=== PATIENT | male | born 1955 | race Caucasian/White ===

== ENCOUNTER 2020-04-10 00:45 | Observation (INO) | payer OTHER, SELFPAY ==
[2020-04-10] VITALS (12 sets, daily range): BP systolic 153–183; BP diastolic 68–100; PULSE 49–63; RESP 14–22; TEMP 35.8–36.9; O2SAT 87–98; BMI 40.1; BMI 41.0
--- NOTE | 2020-04-10 00:57 | EKG12_ITS ---
Test Reason : CP Blood Pressure : / mmHG Vent. Rate : 049 BPM Atrial Rate : 049 BPM P-R Int : 186 ms QRS Dur : 100 ms QT Int : 468 ms P-R-T Axes : 012 013 057 degrees QTc Int : 422 ms Sinus bradycardia Nonspecific T wave abnormality Abnormal ECG Confirmed by BLADE STARR, SHO ([id number]), mapping editor CHING ANGULO ([id number]) on 04/12/2020 1:04:43 PM Referred By: DARCY Confirmed By:SHO MURGUIA MD
--- NOTE | 2020-04-10 00:57 | RAD_ITS ---
STUDY: X-RAY CHEST REASON FOR EXAM: Male, 64 years old. CHEST PAIN X 45 MIN. 1 STENT IN 2016. TECHNIQUE: Single AP portable view of the chest. COMPARISON: None. FINDINGS: Lungs underexpanded interstitial markings are mildly prominent there is peribronchial thickening. There is no demonstrated pleural abnormality. The heart is partially obscured by the hemidiaphragms. There is mild to moderate cardiac enlargement. Normal mediastinum and ivania. Normal visualized pulmonary arteries. There is atherosclerotic tortuosity of the aortic arch and descending thoracic aorta. Normal visualized thoracic spine. Normal visualized ribs, clavicles, and shoulders. There is no demonstrated abnormality of the visualized soft tissue structures of the upper abdomen. RAD/Chest 1 View (Portable) IMPRESSION: Mild to moderate cardiomegaly. The findings are suspicious for mild central vascular congestion. Electronically Signed: Mendy Hayward MD at 1:21 EDT Tel , Service support ,
--- NOTE | 2020-04-10 00:58 | ED.VIS.GEN ---
History of Present Illness Chief Complaint: Chest Pain Informant: Patient Narrative: 64-year-old male with a history of CAD, cardiac stent, hypertension, hyperlipidemia presenting with chest pain which started about 1.5 hours ago. This woke him up from sleep. He said he felt nauseous initially but this resolved. His chest pain is currently a 3 in the ER. He states he did not get diaphoretic. There is no radiation of the pain. Patient does state that he had a positive sleep apnea test outpatient and is currently awaiting a CPAP for home. He states that he gets hypoxic when he sleeps. Patient denies fever, chills, cough. He is not short of breath while awake. No DVT/PE. Past Medical History - Allergies and Home Meds Allergies/Adverse Reactions: Allergies No Known Allergies Allergy (Verified 04/10/20 00:47) Past Medical History: - - Hypertension, hyperlipidemia, CAD Surgical History: noncontributory, - - Cardiac stent Lives: Spouse/ Significant Other Smoking Status: Never smoker Alcohol: None Drugs: None - Family History Maternal Family History: Reports: Unknown Paternal Family History: Reports: Unknown Review of Systems General: Denies: Chills, Fever, Sweats Eyes: Denies: Visual changes - bilaterally, Diplopia ENT: Denies: Rhinorrhea, Sore throat Cardiovascular: Reports: Chest pain Respiratory: Reports: Dyspnea, Cough Gastrointestinal: Reports: Nausea. Denies: Abdominal pain Genitourinary: Denies: Dysuria, Hematuria Musculoskeletal: Denies: Myalgias, Arthralgias Skin: Denies: Rash, Abscess Neurological: Denies: Headache, Weakness Physical Exam Vital Signs/Narrative: Vital Signs Temp Pulse Resp BP Pulse Ox 04/10/20 00:57 93 04/10/20 00:45 96.5 F L 49 L 22 H 183/79 H 95 Inital Vital Signs reviewed: Yes General: Obese, No Acute Distress Head: Normocephalic, Atraumatic Eyes: Perrl, EOMI ENT: Moist mucous membranes, No rhinorrhea Cardiovascular: Regular rate, Regular rhythm Respiratory: No distress Abdomen: Soft, Nontender Extremities: Nontender, Edema Skin: Normal color, No rash Neurological: Alert, Oriented x3 Psychological: Normal affect, Normal Mood Diagnostic/Tx/Re-eval Clinical Impression(s) from Imaging Studies Chest X-Ray 04/10/20 00:57 IMPRESSION: Mild to moderate cardiomegaly. The findings are suspicious for mild central vascular congestion. Electronically Signed: Mendy Hayward MD at 1:21 EDT Tel , Service support , Laboratory Data 04/10/20 04/10/20 04/10/20 00:52 00:52 00:52 WBC 6.9 RBC 4.79 Hgb 13.4 Hct 40.9 MCV 85.4 MCH 28.0 MCHC 32.8 RDW Std Deviation 41.9 RDW Coeff of Iván 13.5 Plt Count 162 MPV 9.2 Immature Gran % (Auto) 0.400 Neut % (Auto) 64.9 Lymph % (Auto) 20.4 [place] % (Auto) 10.3 H Eos % (Auto) 3.6 Baso % (Auto) 0.4 Absolute Neuts (auto) 4.5 Absolute Lymphs (auto) 1.41 Nucleated RBC % 0 D-Dimer Quant (PE/DVT) 0.32 Sodium Cancelled Potassium Cancelled Chloride Cancelled Carbon Dioxide Cancelled Anion Gap Cancelled BUN Cancelled Creatinine Cancelled Estim Creat Clear Calc Cancelled Est GFR (MDRD) Af Amer Cancelled Est GFR (MDRD) Non-Af Cancelled BUN/Creatinine Ratio Cancelled Glucose Cancelled Calcium Cancelled Troponin I Cancelled B-Natriuretic Peptide 04/10/20 04/10/20 00:52 01:40 WBC RBC Hgb Hct MCV MCH MCHC RDW Std Deviation RDW Coeff of Iván Plt Count MPV Immature Gran % (Auto) Neut % (Auto) Lymph % (Auto) [place] % (Auto) Eos % (Auto) Baso % (Auto) Absolute Neuts (auto) Absolute Lymphs (auto) Nucleated RBC % D-Dimer Quant (PE/DVT) Sodium 140 Potassium 3.4 L Chloride 104 Carbon Dioxide 32.0 Anion Gap 4 L BUN 21 H Creatinine 0.71 Estim Creat Clear Calc 111.38 Est GFR (MDRD) Af Amer 145 Est GFR (MDRD) Non-Af 120 BUN/Creatinine Ratio 29.7 H Glucose 184 H Calcium 8.6 Troponin I < 0.015 B-Natriuretic Peptide 18.2 - Rhythm Strip Rhythm Strip: Sinus Rhythm Rate: 49 - EKG Initial EKG Interpretation: No Acute Injury Pattern, Sinus Bradycardia - Medical Decision Making C4-year-old male presenting with chest pain which woke him from sleep. Initially he was hypoxic when found by EMS and states that he recently had a positive sleep apnea test is waiting for CPAP. His chest pain has slightly improved over the last hour and a half. EKG performed on arrival shows sinus rhythm at 49 bpm. There is no ST elevations or depressions. Troponin is negative. D-dimer is negative. BNP is negative. Chest x-ray shows concern for some central congestion it is unclear if this is due to his sleep apnea. Initially given 1 nitroglycerin for his pain which he stated made it worse for a short time but on reevaluation he was sleeping comfortably. He has a heart score of 4 therefore I will admit him to the hospital for testing. Patient is stable for transfer to the floor. Impression: 1. Chest pain ED Disposition - Plan for ED Patient: Disposition: Acute Care Hospital [facility]
--- NOTE | 2020-04-10 00:59 | ED.RN ---
NO OLD EKG IN MUSE
[2020-04-10 01:21] LABS: Absolute Lymphocyte Count 1.41 X10^3/uL (0.83-4.51); Absolute Neutrophil Count 4.5 X10^3/uL (2.0-7.7); Basophil# 0.03 X10^3/uL; Basophil% 0.4 % (0-1); Eosinophil# 0.25 X10^3/uL; Eosinophils% 3.6 % (0-5); Hematocrit 40.9 % (40-54); Hemoglobin 13.4 g/dL (13.0-16.5); Lymphocyte # 1.41 X10^3/ul (4.0); Lymphocyte % 20.4 % (19-41); Mean Corp Hgb Conc 32.8 g/dL (32-36); Mean Corpuscular Volume 85.4 fL (80-94); Mean Platelet Vol. 9.2 fl (6.2-12.0); Monocyte# 0.71 X10^3/uL; Monocyte% 10.3 % (0-10); NRBC Flagged by Analyzer 0 % (0-5); Neutrophil # 4.49 X10^3/uL (2.7-7.7); Neutrophil % 64.9 % (47-70); Platelet Count 162 K/mm3 (150-450); RBC Distribution Width CV 13.5 % (11.6-14.6); RBC Distribution Width SD 41.9 fl (35.1-43.9); Red Blood Count 4.79 M/mm3 (4.6-6.2); White Blood Count 6.9 K/mm3 (4.4-11.0)
[2020-04-10] MEDS: Aspirin 81 MG TAB.CHEW 324 MG PO (01:44)
[2020-04-10] MEDS: Nitroglycerin SL (ED/IMG/CATH) 0.4 MG TABLET SUBLINGUAL (01:46)
[2020-04-10 01:55] LABS: D-Dimer Quantitative (DVT/PE) 0.32 FEU/ug/m (0.27-0.49)
[2020-04-10 02:09] LABS: Anion Gap 4 (5-15); BUN 21 mg/dL (7-18); BUN/Creat Ratio 29.7 RATIO (10-20); Calcium,Total 8.6 mg/dL (8.5-10.1); Chloride 104 mmol/L (98-107); Creatinine, Serum 0.71 mg/dL (0.70-1.30); EST Glomerular Filtration Rate 120 mL/min (>60); Est Glom Filt Rate - Afr Amer 145 mL/min (>60); Estimated Creatinine Clearance 111.38 ml/min; Glucose 184 mg/dL (74-106); Potassium 3.4 mmol/L (3.5-5.1); Sodium Level 140 mmol/L (136-145)
[2020-04-10 02:14] LABS: BNP,B-Type NATRIURETIC PEPTIDE 18.2 pg/mL (0-100)
--- NOTE | 2020-04-10 02:52 | PCM.HP.STD ---
History of Present Illness Date of Admission: 04/10/20 Chief Complaint: Chest pain The patient is a 64 year old M with a PMH as below who presents to the hospital chest pain. He said about an hour and a half prior to arrival. It woke him out of sleep and is actually improved now since arrival. Initial troponin was unremarkable and EKG was nonischemic. He does have obstructive sleep apnea and has had a sleep study recently that shows he needs CPAP and that at home he has been hypoxic down to the 50s and 60s. Placed on oxygen by EMS when they arrived Past Medical History Allergies No Known Allergies Allergy (Verified 04/10/20 00:47) Home Medications: Ambulatory Orders Medication Instructions Recorded Carvedilol [Coreg] 25 mg PO BID 04/10/20 Doxazosin Mesylate [Cardura] 2 mg PO DAILY 04/10/20 Hydrochlorothiazide [Hctz] 25 mg PO DAILY 04/10/20 Lisinopril [Zestril] 20 mg PO BID 04/10/20 Mesalamine [Lialda] 1.2 g PO DAILY 04/10/20 Minoxidil 2.5 mg PO DAILY 04/10/20 Rosuvastatin Calcium [Crestor] 5 mg PO QHS 04/10/20 Surgical History: arthroscopy, knee, - - Cardiac stent, carpal tunnel Lives: Spouse/ Significant Other Smoking Status: Never smoker Alcohol: None Drugs: None - *Family History Maternal History Items: Unknown Paternal History Items: Unknown Review of Systems Constitutional: Denies: Chills, Fever, Weight Change HEENT: Denies: Head Aches, Sinus Congestion, Sinus Drainage Cardiovascular: Reports: Chest Pressure, Chest Tightness. Denies: Chest Pain, Palpitations Respiratory: Denies: Cough, Shortness of breath at rest, Sputum production Gastrointestinal: Denies: Abdominal Pain, Nausea, Vomiting Genitourinary: Denies: Dysuria Musculoskeletal: Denies: Joint Pain, Joint Tenderness Skin: Denies: Rash, Wounds Neurological: Denies: Numbness, Tingling, Focal weakness Psychiatric: Denies: Anxiety, Depression Hematologic/ Lymphatic: Denies: Easy Bruising, Easy Bleeding VTE Information - Inpt Only VTE Present on Admission: No - Physical Exam Vitals/I&O's: Vital Signs Temp Pulse Resp BP Pulse Ox 96.5 F L 52 L 16 170/73 H 94 04/10/20 00:45 04/10/20 02:43 04/10/20 02:43 04/10/20 02:43 04/10/20 02:43 Oxygen Flow Rate (L/min) 3 Oxygen Delivery Method Nasal Cannula Weight: 279 lb 15.793 oz Body Mass Index (BMI) 40.1 General: Alert, Oriented x3, Cooperative, No apparent distress HEENT: Atraumatic, PERRLA, EOMI, Normocephalic Oral: Moist Mucosa Neck: Supple, No JVD Lungs: Clear to auscultation, Normal air movement, No rhonchi, No wheeze, No rales Cardiovascular: Regular rate, Regular Rhythm, Normal S1, Normal S2, No murmurs Abdomen: Soft, Non Tender, Non-Distended, No Hepato-splenomegaly, Obese Extremities: No edema, Capillary Refill Less than 3 Seconds Skin: No rashes, No breakdown Neurological: Neuro grossly intact, Sensory exam intact to light touch and pain Psych/Mental Status: Normal Affect, Appropriate Laboratory Results 04/10/20 00:52: WBC 6.9, RBC 4.79, Hgb 13.4, Hct 40.9, MCV 85.4, MCH 28.0, MCHC 32.8, RDW Std Deviation 41.9, RDW Coeff of Iván 13.5, Plt Count 162, MPV 9.2, Immature Gran % (Auto) 0.400, Neut % (Auto) 64.9, Lymph % (Auto) 20.4, [place] % (Auto) 10.3 H, Eos % (Auto) 3.6, Baso % (Auto) 0.4, Absolute Neuts (auto) 4.5, Absolute Lymphs (auto) 1.41, Nucleated RBC % 0 04/10/20 00:52: Sodium Cancelled, Potassium Cancelled, Chloride Cancelled, Carbon Dioxide Cancelled, Anion Gap Cancelled, BUN Cancelled, Creatinine Cancelled, Estim Creat Clear Calc Cancelled, Est GFR (MDRD) Af Amer Cancelled, Est GFR (MDRD) Non-Af Cancelled, BUN/Creatinine Ratio Cancelled, Glucose Cancelled, Calcium Cancelled, Troponin I Cancelled 04/10/20 00:52: D-Dimer Quant (PE/DVT) 0.32 04/10/20 00:52: B-Natriuretic Peptide 18.2 04/10/20 01:40: Sodium 140, Potassium 3.4 L, Chloride 104, Carbon Dioxide 32.0, Anion Gap 4 L, BUN 21 H, Creatinine 0.71, Estim Creat Clear Calc 111.38, Est GFR (MDRD) Af Amer 145, Est GFR (MDRD) Non-Af 120, BUN/Creatinine Ratio 29.7 H, Glucose 184 H, Calcium 8.6, Troponin I < 0.015 Assessment/Plan 1. Chest pain/CAD status post stents/HTN/HLD/VEL/morbid obesity -We will obtain serial troponins, initial was unremarkable -BNP was normal and d-dimer was negative -Continue with lisinopril, hydrochlorothiazide, Coreg -Continue with Crestor -He has an overnight sleep study plan for next week, will continue with oxygen while he sleeps here -BMI is a little over 40, discussed weight loss strategies 2. BPH -Stable -Continue with doxazosin DVT: Ambulation OBSV E&M: 01000 Initial observation care L2
--- NOTE | 2020-04-10 04:00 | NURSING ---
Pt unsure of when last PNA shot was.
--- NOTE | 2020-04-10 04:30 | EKG12_ITS ---
Test Reason : CP ADMISSION Blood Pressure : / mmHG Vent. Rate : 054 BPM Atrial Rate : 054 BPM P-R Int : 172 ms QRS Dur : 096 ms QT Int : 454 ms P-R-T Axes : -15 009 038 degrees QTc Int : 430 ms Sinus bradycardia Nonspecific T wave abnormality Abnormal ECG No previous ECGs available Confirmed by BALDE STARR, SHO ([id number]), scientific publications editor DIEGO LÓPEZ ([id number]) on 04/17/2020 8:56:11 AM Referred By: DR ENGLE Confirmed By:SHO MURGUIA MD
[2020-04-10] MEDS: Lisinopril 20 MG Tablet PO (05:55)
[2020-04-10] MEDS: Clopidogrel Bisulfate 75 MG Tablet PO (05:55)
[2020-04-10] MEDS: Mesalamine 1.2 GM Tablet PO (11:06)
--- NOTE | 2020-04-10 13:18 | STRESSREP_ITS ---
Stress Test Report Date: 04/10/2020 Procedure: Exercise tolerance test/imaging study Indications: Chest pain Consent: Per the patient Procedure: The patient exercised on a Dejuan protocol for 5 minutes achieving a peak heart rate of 137 bpm (86% predicted maximal heart rate) with a peak blood pressure 236/82 mmHg and a peak MET capacity of 7 METs. The baseline ECG demonstrated normal sinus rhythm. The peak exercise ECG demonstrated no significant ischemic changes. EKG during recovery revealed no significant ischemic changes [There were no significant cardiac dysrhythmias pretest, during exercise, or recovery]. The functional capacity was considered somewhat decreased for age. There was [no complaint of chest discomfort during exercise or recovery]. The examination was discontinued secondary to dyspnea. Impression: 1. Technically adequate (percent predicted maximal heart rate greater than 85%) exercise tolerance test 2. Stress test is negative for exercise-induced EKG changes of ischemia 3. The test test is is negative for exercise-induced chest pain 4. Functional capacity is decreased for age 5. Nuclear images pending Myocardial perfusion imaging study: Technique: The patient was injected with 15 mCi of technetium 99m Cardiolite and subsequently rest SPECT Cardiolite nuclear imaging was obtained in the horizontal long, vertical long, and short axis views. The patient exercised on a Dejuan protocol. Please see above for details. The patient was injected with 44.8 mCi of technetium 99m Cardiolite and subsequently stress SPECT Cardiolite nuclear imaging was obtained in the horizontal long, vertical long, and short axis views. A gated Cardiolite study at peak stress was obtained. Interpretation: Rest and stress SPECT Cardiolite nuclear imaging status post realignment, normalization, and attenuation correction, demonstrates mildly decreased radioisotope uptake in the apex on both the rest and stress images. The gated Cardiolite study demonstrates no significant regional wall motion abnormalities. These findings are suggestive of apical thinning, normal variant. The reported LVEF is 66%. Impression: 1. There is no evidence of significant ischemia or infarction. 2. The gated Cardiolite study reports an LVEF of 66%. This note was generated with Quincusation software. It may contain incorrect words, spelling, and punctuation that were not noted in checking the note before signing.
--- NOTE | 2020-04-10 14:37 | PCM.DC ---
You will use the following diet at home:: No restrictions Your food should be the consistency of: Regular Your liquids should be the consistency of: Regular/Thin Discharge Activity: Return to Normal Activity Weight Bearing Status: Full weight bearing Additional Instructions: TRY TO RESUME CRESTOR AT 2.5 MG DAILY OR CRESTOR 5MG EVERY OTHER DAY TO SEE IF YOU CAN TOLERATE THIS MEDICINE Allergies/Adverse Reactions: Allergies No Known Allergies Allergy (Verified 04/10/20 00:47) Medications to take at Discharge Aspirin 81 mg PO DAILY 04/10/20 Carvedilol [Coreg (Beta Sandra)] 25 mg PO BID 04/10/20 Clopidogrel Bisulfate [Plavix] 75 mg PO DAILY 04/10/20 Doxazosin Mesylate [Cardura] 2 mg PO DAILY 04/10/20 Hydrochlorothiazide [Hctz] 25 mg PO DAILY 04/10/20 Lisinopril [Zestril] 20 mg PO BID 04/10/20 Mesalamine [Lialda] 1.2 g PO DAILY 04/10/20 Minoxidil 2.5 mg PO DAILY 04/10/20 Multivit-Min/FA/Lycopen/Lutein [Centrum Silver Tablet] 1 tab PO DAILY 04/10/20 Potassium Chloride 20 meq PO DAILY #60 tablet.er 04/10/20 The following prescriptions were given: Potassium Chloride 20 meq PO DAILY #60 tablet.er Transmission Status: Pending to [facility] [facility] Primary Care Physician: Dereck Crystal DO [Primary Care Provider] - Please follow up with your Primary Care Physician in: in 2 weeks-get your potassium level rechecked Test Results: Test results from this visit will be discussed in further detail at your follow-up appointment, if applicable.
[2020-04-10 15:26] LABS: Bedside Glucose 114 mg/dL (70-110)
--- NOTE | 2020-04-12 08:15 | PCM.DC.SUM ---
Discharge Date and Diagnosis Date of Admission: 04/10/20 Date of Discharge: 04/10/20 - Primary Discharge Diagnosis Acute Problems: #1 musculoskeletal chest pain #2 obstructive sleep apnea #3 morbid obesity #4 hypokalemia #5 essential hypertension Hospital Course and Treatment Operations: None Procedures: Nuclear stress test Summary of Care Provided: The patient is a 64 year old M was seen in the emergency room at [facility] with a chief complaint of chest pain, patient described the chest pain as pressure-like in nature and located over his lower chest wall. Patient states that when oxygen was applied in the emergency room the chest pain was alleviated. Patient had no radiation of the pain down his arms or up into his neck. Patient has a past history of coronary artery disease with cardiac stent placement years ago. Work-up in the emergency room including cardiac enzymes EKG and chest x-ray was unremarkable. Patient was placed in observation status on PCU, he had additional cardiac enzymes ordered which were also unremarkable, and he underwent a nuclear treadmill stress test which was negative for reversible ischemia. I had a long discussion with the patient and his , he had recently undergone a home sleep study with a monitor which was mailed to his home, the sleep study was analyzed and according to the and the patient he had 30 episodes of apnea. He had a follow-up with a cap sizer in February 2020 and then according to the was set up for another sleep study and a sleep lab. I called the patient's PCP and had a discussion with him about this, the PCP stated that the patient was only set up for a CPAP titration trial, the PCP did not understand why it would take so long to do this (this was set up for mid April according to the patient's ) and the PCP told me that he would follow-up with the patient to try to expedite the patient receiving CPAP at home. I relayed this to the patient and his . I told them to give the patient's PCP a call if they were not contacted within 48 hours. On 04/10/2020, patient was seen and examined: On examination he appeared in good health and spirits. Vital signs as documented. Skin warm and dry and without overt rashes. Neck without JVD, neck was supple, trachea midline, thyroid was normal. Lungs clear bilaterally, normal air movement was noted. Heart exam notable for regular rhythm, normal sounds and absence of murmurs, rubs or gallops. Abdomen unremarkable and without evidence of organomegaly, masses, or abdominal aortic enlargement. Bowel sounds are present, abdomen is not distended. Extremities generalized +1 mm pitting edema is noted of the lower legs bilaterally, no cyanosis was noted, no clubbing was noted. Neuro: Cranial nerves II through XII are grossly intact, no focal motor deficits were noted, sensation to light touch and pinprick intact, motor exam 5/5 throughout. Psych: Patient is alert and oriented x3, he does not appear anxious or depressed, he does not appear agitated. Patient appears stable for discharge on 04/10/2020, the etiology of the chest pain was not determined but this examiner felt it was probably musculoskeletal in nature. Further note: Patient was placed on oral KCl as an outpatient. - Physical Exam Vitals/I&O's: Vital Signs Temp Pulse Resp BP Pulse Ox 98.4 F 60 14 153/81 H 94 04/10/20 14:44 04/10/20 14:44 04/10/20 14:44 04/10/20 14:44 04/10/20 14:44 Oxygen Flow Rate (L/min) 2 Oxygen Delivery Method Room Air Weight: 126 kg Body Mass Index (BMI) 41.0 Intake and Output for Last 24 Hours 04/10/20 04/11/20 04/12/20 23:59 23:59 23:59 Intake Total 0 / 0 Balance 0 / 0 Discharge Activity: Return to Normal Activity Weight Bearing Status: Full weight bearing Home Medications: Medications to take at Discharge Aspirin 81 mg PO DAILY 04/10/20 Carvedilol [Coreg (Beta Sandra)] 25 mg PO BID 04/10/20 Clopidogrel Bisulfate [Plavix] 75 mg PO DAILY 04/10/20 Doxazosin Mesylate [Cardura] 2 mg PO DAILY 04/10/20 Hydrochlorothiazide [Hctz] 25 mg PO DAILY 04/10/20 Lisinopril [Zestril] 20 mg PO BID 04/10/20 Mesalamine [Lialda] 1.2 g PO DAILY 04/10/20 Minoxidil 2.5 mg PO DAILY 04/10/20 Multivit-Min/FA/Lycopen/Lutein [Centrum Silver Tablet] 1 tab PO DAILY 04/10/20 Potassium Chloride 20 meq PO DAILY #60 tablet.er 04/10/20 Following Prescriptions Were Given to Patient: Potassium Chloride 20 meq PO DAILY #60 tablet.er Transmission Status: Received by [facility] [facility] Primary Care Physician: Dereck Crystal DO [Primary Care Provider] - Please follow up with your Primary Care Physician in: in 2 weeks-get your potassium level rechecked Disposition: Home Minutes spent on discharge:: 30 Patient Condition:: Stable Medical Necessity - Tobacco Use Smoking Status: Former smoker Meaningful Use Info Meaningful Use Diagnoses (Choose all that apply): None applicable OBSV E&M: 05122 Observ/hosp same date L3
== END 2020-04-10 14:40 | disposition home or self-care (01) ==
LOC: ED 01:47 → PCU 02:56
PROVIDERS: Admitting Provider Family Medicine; Emergency Provider Student in an Organized Health Care Education/Training Program; PCP Family Medicine; Visit Provider Internal Medicine
DX: R07.89 Other chest pain (principal); E66.01 Morbid (severe) obesity due to excess calories; G47.33 Obstructive sleep apnea (adult) (pediatric); E87.6 Hypokalemia; Z79.899 Other long term (current) drug therapy; Z79.82 Long term (current) use of aspirin; Z79.02 Long term (current) use of antithrombotics/antiplatelets; I10 Essential (primary) hypertension; I25.10 Atherosclerotic heart disease of native coronary artery without angina pectoris; E78.5 Hyperlipidemia, unspecified; Z95.5 Presence of coronary angioplasty implant and graft; R00.1 Bradycardia, unspecified; Z68.41 Body mass index [BMI] 40.0-44.9, adult; N40.0 Benign prostatic hyperplasia without lower urinary tract symptoms
CPT/HCPCS: 36415; 71045; 78452; 80048; 82962; 83880; 84484; 85025; 85379; 93005; 93017; 99218; 99285; A9500; A4216; G0378; J2785

== ENCOUNTER 2020-10-03 16:19 | Outpatient (RCR) | payer OTHER, SELFPAY ==
[2020-04-10 04:04] VITALS: BMI 41.0
[2020-10-03] MEDS: COVID-19 VACC, MRNA(PFIZER)/PF 30 MCG/0.3 ML SYRINGE IM (13:10)
[2020-10-24] MEDS: COVID-19 VACC, MRNA(PFIZER)/PF 30 MCG/0.3 ML SYRINGE IM (12:24)
== END 2020-10-03 23:59 ==
LOC: IMMUN 16:19
PROVIDERS: PCP Family Medicine; Visit Provider Family Medicine
DX: Z23 Encounter for immunization (principal)
CPT/HCPCS: 0001A; 0002A; 91300

== ENCOUNTER 2021-12-15 14:14 | Emergency (ER) | payer OTHER, SELFPAY ==
[2021-12-15 14:14] VITALS: BP 205/99; PULSE 58; RESP 16; TEMP 36.8; O2SAT 98; BMI 37.3
--- NOTE | 2021-12-15 14:17 | RAD_ITS ---
STUDY: X-RAY - RIGHT WRIST REASON FOR EXAM: Male, 66 years old. TRAUMA -- IN ED WR TECHNIQUE: 3 view(s) of the wrist were obtained. COMPARISON: None. FINDINGS: Normal visualized distal radius and ulna. Normal radiocarpal articulation. Normal distal radioulnar articulation. Normal carpal bones. Normal carpal articulations. Normal carpometacarpal articulation of the thumb. Normal second through fifth carpometacarpal articulations. Normal visualized metacarpal bones. The soft tissue structures are unremarkable. RAD/Wrist min 3 Views IMPRESSION: Normal x-ray examination of the wrist. Electronically Signed: Deangelo Hernandez MD at 14:31 EDT ,
--- NOTE | 2021-12-15 15:25 | EDS_ITS ---
HPI History of Present Illness Chief Complaint: Upper Extremity Injury Detail of Chief Complaint: Right wrist injury Informant: patient Onset/Context/Timing Onset: Today Current Severity: Mild Maximum Severity: Moderate Narrative Narrative: Patient presents secondary to right wrist pain. He is right-hand dominant. He was using a drill with a 2 inch diameter hole bit. He states when the larger diameter of the bit hit the wood the drill cranked hard twisting his wrist. No paresthesias. PFSH PFS Medical History HTN (hypertension) Home Medications aspirin 81 mg PO DAILY 04/10/20 [History Last Taken 04/09/20 07:30] carvedilol 25 mg PO BID 04/10/20 [History Last Taken 04/09/20 18:00] clopidogrel 75 mg PO DAILY 04/10/20 [History Last Taken 04/09/20 05:30] doxazosin 2 mg PO DAILY 04/10/20 [History Last Taken 04/09/20 18:00] hydrochlorothiazide 25 mg PO DAILY 04/10/20 [History Last Taken 04/09/20 05:30] lisinopril 20 mg PO BID 04/10/20 [History Last Taken 04/09/20 18:00] mesalamine 1.2 g PO DAILY 04/10/20 [History Last Taken 04/09/20 05:30] minoxidil 2.5 mg PO DAILY 04/10/20 [History Last Taken 04/09/20 05:30] nxsatbru-iar-ZK-lycopen-lutein 1 tab PO DAILY 04/10/20 [History Last Taken 04/09/20 05:30] potassium chloride 20 meq PO DAILY #60 tablet.er 04/10/20 [Rx Last Taken Unknown] naproxen [Naprosyn] 500 mg PO BID PRN #20 tab 12/15/21 [Rx Last Taken Unknown] Allergy/AdvReac Type Severity Reaction Status Date / Time No Known Allergies Allergy Verified 04/10/20 00:47 Surgical History History of carpal tunnel surgery of right wrist Social History Smoking Status: Former smoker ROS ROS ED Constitutional Constitutional ED: Denies chills or fever(s) Eyes Eyes: Denies change in vision ENT ENT ED: Denies sore throat Cardiovascular Cardiovascular: Denies chest pain Respiratory/Chest Respiratory/Chest: Denies cough or dyspnea Gastrointestinal Gastrointestinal: Denies abdominal pain, nausea or vomiting Genitourinary Genitourinary ED: Denies dysuria Musculoskeletal Musculoskeletal: Reports other Details: Right wrist pain ; Denies back pain Integumentary Denies rash Neurologic Neurologic: Denies headache(s) or weakness Allergic/Immunologic Allergic/Immunologic ED: Denies urticaria EXAM Physical Exam Const Vital Signs: 12/15/21 14:14 Temperature 98.2 F Temperature Source Temporal Pulse Rate 58 L Respiratory Rate 16 Blood Pressure 205/99 H Blood Pressure Mean 134 Pulse Ox 98 Oxygen Delivery Method Room Air Positive well nourished and well developed General Appearance ED: well developed HEENT normocephalic Eyes PERRL and EOMs intact bilaterally Neck supple Chest Wall inspection of chest normal and palpation of chest normal Resp normal respiratory effort and clear to auscultation bilaterally Cardio regular rate and regular rhythm GI non-tender Palpation: soft Extremity Extremity Narrative: Patient with tenderness over the extensor surface of the right elbow. No significant edema. Strong hand grasp. No tenderness at the elbow. Neuro oriented x3, no focal motor deficits and no sensory deficits noted Sensorium / Orientation: alert Psych mental status grossly normal Skin Lesions: no lesions Rashes: no rashes MDM MDM MDM Narrative Medical decision making narrative: Right wrist x-ray obtained per nursing protocol. Radiography Diagnostic Testing: Clinical Impression(s) from Imaging Studies Wrist X-Ray 12/15/21 14:17 IMPRESSION: Normal x-ray examination of the wrist. Electronically Signed: Deangelo Hernandez MD at 14:31 EDT , Treatment and Re-Evaluation Narrative: Right wrist x-ray per my interpretation reveals no acute fracture. Radiology interpretation reviewed. [place] wrap is applied to the right wrist. He will be treated with naproxen. Patient's blood pressure was noted to be significantly elevated in triage at 205 systolic. Monitor in room rates systolic pressure of 198 and manual pressure is obtained at 194/98. He will be given an oral dose of hydralazine here. He will monitor his blood pressures this week and already has a follow-up appointment scheduled on Wednesday. Discharge Plan Triage Chief Complaint: Upper Extremity Injury ED Provider: Faye Alfaro Dx/Rx/DC Orders Clinical Impression: Sprain of right wrist, Hypertension Instructions: ED Hypertension, Established, ED Wrist Sprain Prescriptions: New naproxen [Naprosyn] 500 mg tablet 500 mg PO BID PRN (Reason: pain) Qty: 20 RF: 0 No Action carvedilol 25 MG tablet 25 mg PO BID RF: 0 lisinopril 20 MG tablet 20 mg PO BID RF: 0 minoxidil 2.5 mg tablet 2.5 mg PO DAILY RF: 0 hydrochlorothiazide 25 MG tablet 25 mg PO DAILY RF: 0 doxazosin 2 MG tablet 2 mg PO DAILY RF: 0 mesalamine 1.2 gram tablet,delayed release (DR/EC) 1.2 g PO DAILY RF: 0 clopidogrel 75 MG tablet 75 mg PO DAILY RF: 0 aspirin 81 MG tablet,chewable 81 mg PO DAILY RF: 0 rujkrjhe-ltp-OK-lycopen-lutein 1 EACH tablet 1 tab PO DAILY RF: 0 potassium chloride 10 MEQ tablet extended release 20 meq PO DAILY Qty: 60 RF: 0 Primary Care Provider: Dereck Crystal Referrals: Dereck Crystal DO [Primary Care Provider] - [facility] appointment Disposition Disposition: Home, Self Care
[2021-12-15] MEDS: Naproxen 500 MG Tablet PO (15:29)
[2021-12-15] MEDS: hydrALAZINE 10 MG Tablet PO (15:54)
[2021-12-15 15:58] VITALS: BP 202/94; PULSE 83; RESP 16; O2SAT 99
== END 2021-12-15 16:01 | disposition home or self-care (01) ==
LOC: ED 15:42
PROVIDERS: Emergency Provider Emergency Medicine; PCP Family Medicine; Visit Provider Emergency Medicine
DX: S63.91XA Sprain of unspecified part of right wrist and hand, initial encounter (principal); I10 Essential (primary) hypertension; Z87.891 Personal history of nicotine dependence; Z79.82 Long term (current) use of aspirin; Z79.899 Other long term (current) drug therapy; X50.1XXA Overexertion from prolonged static or awkward postures, initial encounter
CPT/HCPCS: 73110; 99283

== ENCOUNTER → 2022-05-25 | Outpatient (CLI) | payer OTHER, SELFPAY | END | disposition home or self-care (01) | LOC: CVS 10:49 | PROVIDERS: PCP Family Medicine; Referring Provider Internal Medicine Cardiovascular Disease; Visit Provider Internal Medicine Cardiovascular Disease | DX: I10 Essential (primary) hypertension (principal) | CPT/HCPCS: 93306; 93788 ==

== ENCOUNTER → 2022-06-08 | Outpatient (CLI) | payer OTHER, SELFPAY ==
--- NOTE | 2022-06-08 07:13 | CT_ITS ---
EXAM: CT ANGIOGRAPHY ABDOMEN AND PELVIS WITHOUT AND WITH INTRAVENOUS CONTRAST CLINICAL INDICATION: renal artery stenosis TECHNIQUE: Helically acquired angiography images were obtained of the abdomen and pelvis without and with intravenous contrast. This CT exam was performed using one or more of the following dose reduction techniques: automated exposure control, adjustment of the mA and/or kV according to patient size, and/or use of iterative reconstruction technique. This report was created using neo[employer]urgical report generation technology. MIP reconstructed images were created and reviewed. CONTRAST: IV 100mL Isovue-370 COMPARISON: None. FINDINGS: VASCULATURE: AORTA: No acute findings. Normal caliber abdominal aorta. No dissection. CELIAC TRUNK AND MESENTERIC ARTERIES: No acute findings. No occlusion or significant stenosis. No dissection. RENAL ARTERIES: No acute findings. No occlusion or significant stenosis. No dissection. ILIAC ARTERIES: No acute findings. No occlusion or significant stenosis. No dissection. LOWER THORAX: Normal. Lung bases are clear. No cardiomegaly. No significant pericardial effusion. ABDOMEN: LIVER: Liver is mildly enlarged without focal space-occupying lesion. GALLBLADDER AND BILE DUCTS: Normal. No calcified gallstones. No gallbladder distention or wall edema. No intra- or extrahepatic biliary ductal dilation. PANCREAS: Normal. No focal cystic or solid mass. SPLEEN: Normal. Normal size without focal cystic or solid mass. ADRENALS: Normal. No nodules. KIDNEYS AND URETERS: 3 mm stone noted within the upper pole of the left kidney. Normal renal size and position. No hydronephrosis. STOMACH AND BOWEL: Normal. No stomach or bowel distention. No focal inflammatory change. PELVIS: APPENDIX: Appendix is visualized and normal in appearance. BLADDER: Normal. REPRODUCTIVE: Unremarkable as visualized. No mass. ABDOMEN and PELVIS: INTRAPERITONEAL SPACE: Normal. No ascites or other fluid collection. No free air. BONES/JOINTS: Normal. No suspicious lytic or blastic abnormality. SOFT TISSUES: Small fat-containing umbilical hernia is present. LYMPH NODES: Mildly prominent mesenteric lymph nodes are noted suggestive of adenitis. CT/CT ANGIO ABD&PEL W/O&W/DYE IMPRESSION: 1. No evidence of renal artery stenosis. 2. Nonobstructive 3 mm left renal stone. 3. Hepatomegaly. Electronically Signed: Odin Chan MD at 8:09 EST ,
[2022-06-08 07:45] LABS: CREATININE FINGERSTICK < 0.9 mg/dL (0.70-1.30); EGFR FINGERSTICK > 60.0000 mL/min (>60)
== END | disposition home or self-care (01) ==
LOC: CT 07:10
PROVIDERS: PCP Family Medicine; Referring Provider Internal Medicine Cardiovascular Disease; Visit Provider Internal Medicine Cardiovascular Disease
DX: I25.10 Atherosclerotic heart disease of native coronary artery without angina pectoris (principal); I10 Essential (primary) hypertension; Z95.5 Presence of coronary angioplasty implant and graft
CPT/HCPCS: 74174; Q9967

== ENCOUNTER → 2022-07-17 | Outpatient (CLI) | payer OTHER, SELFPAY ==
[2022-07-17 07:59] LABS: AST(SGOT) 11 U/L (15-37); Alanine Aminotransfer ALT/SGPT 25 U/L (16-61); Albumin, Serum 3.8 g/dL (3.2-5.0); Alkaline Phosphatase 82 U/L (45-117); Bilirubin, Direct 0.13 mg/dL (0.00-0.30); Cholesterol 176 mg/dL (200); Globulin 3.5 g/dL (2.2-4.2); High Density Lipoprotein 32 mg/dL; Protein, Total 7.3 g/dL (6.4-8.2); Triglycerides 171 mg/dL; Very Low Density Lipoprotein 34 mg/dL (5-40)
[2022-07-17 08:02] LABS: Anion Gap 7 (5-15); BUN 17 mg/dL (7-18); BUN/Creat Ratio 20.2 RATIO (10-20); Chloride 103 mmol/L (98-107); Creatinine, Serum 0.84 mg/dL (0.70-1.30); EST Glomerular Filtration Rate 98 mL/min (>60); Est Glom Filt Rate - Afr Amer 118 mL/min (>60); Glucose 153 mg/dL (74-106); Potassium 3.7 mmol/L (3.5-5.1); Sodium Level 137 mmol/L (136-145)
== END | disposition home or self-care (01) ==
PROVIDERS: Internal Medicine Cardiovascular Disease; PCP Family Medicine; Referring Provider Nurse Practitioner Family; Visit Provider Nurse Practitioner Family
DX: I10 Essential (primary) hypertension (principal); I25.10 Atherosclerotic heart disease of native coronary artery without angina pectoris; E78.5 Hyperlipidemia, unspecified
CPT/HCPCS: 36415; 80048; 80061; 80076

== ENCOUNTER 2022-08-04 15:27 | Outpatient (RCR) | payer OTHER, SELFPAY | END 2022-08-18 23:59 | LOC: NS 15:27 | PROVIDERS: PCP Family Medicine; Visit Provider Nurse Practitioner Family | DX: Z71.3 Dietary counseling and surveillance (principal); E66.9 Obesity, unspecified; I10 Essential (primary) hypertension; E78.5 Hyperlipidemia, unspecified; Z68.39 Body mass index [BMI] 39.0-39.9, adult | CPT/HCPCS: 97802 ==

== ENCOUNTER 2022-08-26 16:18 | Outpatient (RCR) | payer OTHER, SELFPAY | END 2022-09-15 23:59 | LOC: NS 16:18 | PROVIDERS: PCP Family Medicine; Visit Provider Nurse Practitioner Family | DX: E66.9 Obesity, unspecified (principal); I10 Essential (primary) hypertension; E78.5 Hyperlipidemia, unspecified | CPT/HCPCS: 97803 ==

== ENCOUNTER → 2022-09-10 | Outpatient (CLI) | payer OTHER, SELFPAY | END | disposition home or self-care (01) | LOC: SL 13:59 | PROVIDERS: PCP Family Medicine; Visit Provider Internal Medicine Critical Care Medicine | DX: G47.33 Obstructive sleep apnea (adult) (pediatric) (principal) ==

== ENCOUNTER 2022-10-07 16:30 | Outpatient (RCR) | payer OTHER, SELFPAY | END 2022-10-16 23:59 | LOC: NS 16:30 | PROVIDERS: PCP Family Medicine; Visit Provider Nurse Practitioner Family | DX: Z71.3 Dietary counseling and surveillance (principal); I10 Essential (primary) hypertension; E78.5 Hyperlipidemia, unspecified; E66.9 Obesity, unspecified; Z68.39 Body mass index [BMI] 39.0-39.9, adult | CPT/HCPCS: 97803 ==

== ENCOUNTER → 2022-10-28 | Outpatient (CLI) | payer OTHER, SELFPAY ==
--- NOTE | 2022-10-28 16:42 | CT_ITS ---
STUDY: CT ABDOMEN AND PELVIS WITH CONTRAST REASON FOR EXAM: Male, 66 years old. CROHN''S RADIATION DOSAGE (If Supplied By Facility): CTDIvol = ( 23.56 ) mGy, DLP = ( 2119.80 ) mGycm TECHNIQUE: Transaxial images were obtained from the dome of the diaphragm to the symphysis pubis without oral contrast. Oral and IV Breeza Neutral and 100mL Isovue-300 was administered. Sagittal and coronal images were reconstructed. Individualized dose optimization techniques were used for this CT. COMPARISON: None. FINDINGS: Left basilar granulomatous nodule. The visualized portions of the heart are within normal limits. Normal liver. Normal gallbladder and extrahepatic biliary system. Normal spleen. Normal pancreas. Normal bilateral adrenal glands. Normal right kidney. 2 mm stone in the left kidney. Normal visualized stomach. Normal small intestine. Normal colon. The appendix is visualized and appears normal. Mildly calcified abdominal aorta. Normal inferior vena cava. Normal retroperitoneum. Normal urinary bladder. Small fatty umbilical hernia. Degenerative vertebral changes. CT/Abdomen/Pelvis WITH Contrast IMPRESSION: Nonobstructive left renal stone. Small fatty umbilical hernia. Electronically Signed: Case Buenrostro DO at 21:01 EDT Reading Location ID and State: [facility] / [place] Tel [phone], Service support ,
[2022-10-28 17:15] LABS: CREATININE FINGERSTICK < 0.9 mg/dL (0.70-1.30); EGFR FINGERSTICK > 60.0000 mL/min (>60)
== END | disposition home or self-care (01) ==
LOC: CT 16:40
PROVIDERS: PCP Family Medicine; Referring Provider Internal Medicine Gastroenterology; Visit Provider Internal Medicine Gastroenterology
DX: K50.90 Crohn's disease, unspecified, without complications (principal)
CPT/HCPCS: 74177; Q9967; A4216

== ENCOUNTER → 2022-12-10 | Outpatient (CLI) | payer OTHER, SELFPAY ==
--- NOTE | 2022-12-10 15:56 | US_ITS ---
EXAM: US LEFT LOWER EXTREMITY NON-VASCULAR, COMPLETE CLINICAL INDICATION: PALPABLE LUMP ON LEFT BACK TECHNIQUE: Real-time ultrasound scan of the left lower extremity with image documentation. COMPARISON: No relevant prior studies available. FINDINGS: At the left back area of the palpable lump, there is a 4.1 x 2.3 cm isoechoic mass that is wider than tall. No internal blood flow. No adjacent pathology. US/Ext Non Vasc Limited/Soft Tiss IMPRESSION: Lipoma in the area of clinical concern. Electronically Signed: Robert Saucedo MD at 4:57 EDT ,
== END | disposition home or self-care (01) ==
LOC: US 15:55
PROVIDERS: PCP Family Medicine; Referring Provider Family Medicine; Visit Provider Family Medicine
DX: R22.2 Localized swelling, mass and lump, trunk (principal)
CPT/HCPCS: 76882

== ENCOUNTER → 2023-01-29 | Outpatient (CLI) | payer OTHER, SELFPAY ==
[2023-01-29 17:53] LABS: Absolute Lymphocyte Count 0.98 X10^3/uL (0.83-4.51); Absolute Neutrophil Count 5.5 X10^3/uL (2.0-7.7); Basophil# 0.02 X10^3/uL; Basophil% 0.3 % (0-1); Eosinophil# 0.07 X10^3/uL; Hematocrit 38.9 % (40-54); Hemoglobin 12.9 g/dL (13.0-16.5); Lymphocyte # 0.98 X10^3/ul (0.83-4.51); Mean Corp Hgb Conc 33.2 g/dL (32-36); Mean Corpuscular Hgb 29.6 pg (27.0-32.0); Mean Corpuscular Volume 89.2 fL (80-94); Mean Platelet Vol. 10.1 fl (6.2-12.0); Monocyte# 0.43 X10^3/uL; Monocyte% 6.2 % (0-10); NRBC Flagged by Analyzer 0 % (0-5); Neutrophil # 5.46 X10^3/uL (2.7-7.7); Neutrophil % 78.1 % (47-70); Platelet Count 179 K/mm3 (150-450); RBC Distribution Width CV 12.9 % (11.6-14.6); RBC Distribution Width SD 42.2 fl (35.1-43.9); Red Blood Count 4.36 M/mm3 (4.6-6.2)
[2023-01-29 18:16] LABS: Vitamin D,25 Hydroxy 30.8 ng/mL
[2023-01-29 18:17] LABS: Hemoglobin A1c 5.8 % (3.8-5.6)
[2023-01-29 18:23] LABS: AST(SGOT) 13 U/L (15-37); Alanine Aminotransfer ALT/SGPT 30 U/L (16-61); Albumin, Serum 3.6 g/dL (3.2-5.0); Alkaline Phosphatase 64 U/L (45-117); Anion Gap 5 (5-15); BUN 23 mg/dL (7-18); BUN/Creat Ratio 27.8 RATIO (10-20); Bilirubin, Direct 0.08 mg/dL (0.00-0.30); Calcium,Total 8.7 mg/dL (8.5-10.1); Chloride 104 mmol/L (98-107); Cholesterol 188 mg/dL (200); Creatinine, Serum 0.83 mg/dL (0.70-1.30); EST Glomerular Filtration Rate 99 mL/min (>60); Est Glom Filt Rate - Afr Amer 120 mL/min (>60); Globulin 3.5 g/dL (2.2-4.2); Glucose 196 mg/dL (74-106); High Density Lipoprotein 36 mg/dL; Potassium 3.9 mmol/L (3.5-5.1); Protein, Total 7.1 g/dL (6.4-8.2); Sodium Level 136 mmol/L (136-145); Thyroid Stim Hormone (TSH) 1.02 uIU/mL (0.358-3.74); Triglycerides 331 mg/dL; Very Low Density Lipoprotein 66 mg/dL (5-40)
== END | disposition home or self-care (01) ==
LOC: MTLAB 14:48
PROVIDERS: PCP Family Medicine; Referring Provider Family Medicine; Visit Provider Family Medicine
DX: R53.83 Other fatigue (principal); R73.09 Other abnormal glucose
CPT/HCPCS: 36415; 80053; 80061; 82248; 82306; 83036; 84443; 85025

== ENCOUNTER → 2023-03-10 | Outpatient (CLI) | payer OTHER, SELFPAY ==
[2023-03-10 17:33] LABS: Hemoglobin 12.4 g/dL (13.0-16.5); Mean Corp Hgb Conc 32.6 g/dL (32-36); Mean Platelet Vol. 9.8 fl (6.2-12.0); Platelet Count 172 K/mm3 (150-450); RBC Distribution Width CV 13.1 % (11.6-14.6); RBC Distribution Width SD 42.4 fl (35.1-43.9); Red Blood Count 4.27 M/mm3 (4.6-6.2); White Blood Count 8.2 K/mm3 (4.4-11.0)
[2023-03-10 17:57] LABS: AST(SGOT) 11 U/L (15-37); Alanine Aminotransfer ALT/SGPT 23 U/L (16-61); Albumin, Serum 3.8 g/dL (3.2-5.0); Alkaline Phosphatase 60 U/L (45-117); CRP < 2.90 mg/L (0.0-3.0); Globulin 3.2 g/dL (2.2-4.2)
[2023-03-10 18:15] LABS: Hepatitis B Surface Antigen Non-Reactive (Nonreactive)
[2023-03-10 18:22] LABS: Erythrocyte Sedimentation Rate 10 mm/hr (0-20)
[2023-03-11 14:29] LABS: Ferritin 78 ng/mL (26-388); Iron 48 ug/dL (65-175)
[2023-03-13 14:12] LABS: QNTFERON TB Mitogen Value > 10.00 IU/mL (.); QNTFERON TB Nil Value 0.01 IU/mL (.); QNTFERON TB1+ Ag Value 0.02 IU/mL (.); QNTFERON TB2+ Ag Value 0.02 IU/mL (.); QNTIFERON TB Positive Criteria Negative (Negative)
== END | disposition home or self-care (01) ==
PROVIDERS: PCP Family Medicine; Referring Provider Internal Medicine Gastroenterology; Visit Provider Internal Medicine Gastroenterology
DX: K50.90 Crohn's disease, unspecified, without complications (principal)
CPT/HCPCS: 36415; 80076; 82728; 83540; 85027; 85652; 86140; 86480; 87340

== ENCOUNTER → 2023-05-13 | Outpatient (CLI) | payer OTHER, SELFPAY ==
[2023-05-13 16:20] LABS: Anion Gap 7 (5-15); BUN 18 mg/dL (7-18); BUN/Creat Ratio 20.5 RATIO (10-20); Calcium,Total 8.8 mg/dL (8.5-10.1); Chloride 104 mmol/L (98-107); Creatinine, Serum 0.88 mg/dL (0.70-1.30); EST Glomerular Filtration Rate 93 mL/min (>60); Est Glom Filt Rate - Afr Amer 112 mL/min (>60); Glucose 147 mg/dL (74-106); Potassium 3.6 mmol/L (3.5-5.1); Sodium Level 138 mmol/L (136-145)
== END | disposition home or self-care (01) ==
LOC: LAB 15:37
PROVIDERS: PCP Family Medicine; Referring Provider Nurse Practitioner Family; Visit Provider Nurse Practitioner Family
DX: M25.50 Pain in unspecified joint (principal); Z51.81 Encounter for therapeutic drug level monitoring; Z79.899 Other long term (current) drug therapy
CPT/HCPCS: 36415; 80048

== ENCOUNTER → 2024-02-01 | Outpatient (CLI) | payer MEDICARE, SELFPAY ==
[2024-02-01 11:24] LABS: Absolute Lymphocyte Count 1.24 X10^3/uL (0.83-4.51); Absolute Neutrophil Count 3.8 X10^3/uL (2.0-7.7); Basophil# 0.04 X10^3/uL; Basophil% 0.7 % (0-1); Eosinophil# 0.17 X10^3/uL; Eosinophils% 2.9 % (0-5); Hematocrit 37.2 % (40-54); Hemoglobin 12.3 g/dL (13.0-16.5); Lymphocyte # 1.24 X10^3/ul (0.83-4.51); Lymphocyte % 21.4 % (19-41); Mean Corp Hgb Conc 33.1 g/dL (32-36); Mean Corpuscular Hgb 28.7 pg (27.0-32.0); Mean Corpuscular Volume 86.9 fL (80-94); Monocyte# 0.49 X10^3/uL; Monocyte% 8.4 % (0-10); NRBC Flagged by Analyzer 0 % (0-5); Neutrophil # 3.84 X10^3/uL (2.7-7.7); Neutrophil % 66.3 % (47-70); Platelet Count 165 K/mm3 (150-450); RBC Distribution Width CV 13.1 % (11.6-14.6); Red Blood Count 4.28 M/mm3 (4.6-6.2); White Blood Count 5.8 K/mm3 (4.4-11.0)
[2024-02-01 11:28] LABS: Erythrocyte Sedimentation Rate 8 mm/hr (0-20)
[2024-02-01 11:56] LABS: CRP 3.79 mg/L (0.0-3.0); Ferritin 108 ng/mL (26-388); Iron Binding Capacity,Total 342 ug/dL (250-450); LDH 169 U/L (87-241); Vitamin B12 322 pg/mL (211-911)
[2024-02-03 15:09] LABS: Anti-Centromere B Ab <0.2 AI (0.0-0.9); Anti-Chromatin <0.2 AI (0.0-0.9); Anti-Jo <0.2 AI (0.0-0.9); Anti-Scleroderma-70 AB <0.2 AI (0.0-0.9); Anti-dsDNA Ab <1 IU/mL (0-9); RNP Ab 0.2 AI (0.0-0.9); SJOGREN'S Anti-SS-A test < 0.2 AI (0.0-0.9); SJOGREN'S Anti-SS-B test < 0.2 AI (0.0-0.9); Smith Ab <0.2 AI (0.0-0.9); Vitamin D 1,25-Dihydroxy 56.6 pg/mL (24.8-81.5)
[2024-02-04 11:09] LABS: Albumin 4.1 g/dL (2.9-4.4); Alpha-1-Globulins 0.2 g/dL (0.0-0.4); Alpha-2-Globulins 0.7 g/dL (0.4-1.0); Cytoplasmic Ab (C-ANCA) <1:20 titer (Neg:<1:20); Endomysial Antibody IgA Negative (Negative); Gamma Globulin 0.6 g/dL (0.4-1.8); HEPATITIS B SURFACE AG Negative (Negative); Hep C Antibodies Non Reactive (Non Reactive); Hepatitis A IgM Antibody Negative (Negative); Hepatitis B Core AB IgM Negative (Negative); Immunoglobulin A 376 mg/dL (61-437); Immunoglobulin G 789 mg/dL (603-1613); Immunoglobulin M 69 mg/dL (20-172); PROEL- TOTAL PROTEIN 6.6 g/dL (6.0-8.5); Perinuclear Ab (P-ANCA) <1:20 titer (Neg:<1:20); QNTFERON TB Mitogen Value > 10.00 IU/mL (.); QNTFERON TB Nil Value 0.01 IU/mL (.); QNTFERON TB1+ Ag Value 0.03 IU/mL (.); QNTFERON TB2+ Ag Value 0.01 IU/mL (.); QNTIFERON TB Positive Criteria Negative (Negative); t-Transglutaminase IgA <2 U/mL (0-3)
== END | disposition home or self-care (01) ==
PROVIDERS: PCP Family Medicine; Referring Provider Internal Medicine Gastroenterology; Visit Provider Internal Medicine Gastroenterology
DX: K50.90 Crohn's disease, unspecified, without complications (principal)
CPT/HCPCS: 36415; 80074; 82607; 82652; 82728; 82784; 83516; 83550; 83615; 84165; 85025; 85652; 86140; 86225; 86235; 86255; 86256; 86334; 86480

== ENCOUNTER → 2024-02-10 | Outpatient (CLI) | payer MEDICARE, SELFPAY ==
--- NOTE | 2024-02-10 08:07 | US_ITS ---
STUDY: ABDOMINAL ULTRASOUND - RIGHT UPPER QUADRANT; ELASTOGRAPHY REASON FOR VISIT: Male, 68 years old. CATALAN TECHNIQUE: Ultrasound evaluation of the right upper quadrant was performed with real-time and static stephen-scale imaging. Point quantification shear wave elastography was performed ([employer]). TECHNICAL QUALITY: Adequate. COMPARISON: None. FINDINGS: Liver: The liver is enlarged and measures 21.4 cm. There is increased echogenicity consistent with fatty infiltration. The bile ducts are within normal limits. There is hepatic color flow. The direction of portal flow is hepatopetal. There is no demonstrated mass lesion. Median liver stiffness measured 8.3 kPa. Gallbladder: Normal distended gallbladder. The gallbladder wall is slightly thickened and measures 3.6 mm. There is a negative sonographic Alcantar''s sign. There is no pericholecystic fluid. There are multiple echogenic structures within the gallbladder, consistent with multiple gallstones. Common Bile Duct (C.B.D.): The common bile duct measures 5.4 mm. Pancreas: There is normal echogenicity of the visualized pancreas. There is no demonstrated pancreatic mass or cyst. Right Kidney: Normal size of the right kidney. The right kidney measures 13.6 cm x 7.1 cm x 6.8 cm. Normal renal cortex. The right cortex measures 2.0 cm. There is no demonstrated renal mass or cyst. There is no right hydronephrosis. US/ABD Limited w/ Elastography IMPRESSION: 1. Liver stiffness measures 8.3 kPa compatible with F2-F3 (Mild to moderate liver fibrosis) Metavir score. Electronically Signed: Ryan Castellanos MD at 14:17 EDT ,
== END | disposition home or self-care (01) ==
PROVIDERS: PCP Family Medicine; Referring Provider Internal Medicine Gastroenterology; Visit Provider Internal Medicine Gastroenterology
DX: K50.90 Crohn's disease, unspecified, without complications (principal)
CPT/HCPCS: 76705; 76981

== ENCOUNTER → 2024-04-11 | Outpatient (CLI) | payer MEDICARE, SELFPAY ==
[2024-04-11 10:51] LABS: ALB/GLOB Ratio 1.2 RATIO (0.9-2.4); AST(SGOT) 21 U/L (15-37); Alanine Aminotransfer ALT/SGPT 29 U/L (16-61); Albumin, Serum 3.9 g/dL (3.2-5.0); Alkaline Phosphatase 70 U/L (45-117); Anion Gap 7 (5-15); BUN 16 mg/dL (7-18); BUN/Creat Ratio 21.4 RATIO (10-20); Calcium,Total 9.4 mg/dL (8.5-10.1); Chloride 107 mmol/L (98-107); Cholesterol 150 mg/dL (200); Creatinine, Serum 0.75 mg/dL (0.70-1.30); EST Glomerular Filtration Rate 111 mL/min (>60); Est Glom Filt Rate - Afr Amer 135 mL/min (>60); Globulin 3.2 g/dL (2.2-4.2); Glucose 158 mg/dL (74-106); High Density Lipoprotein 31 mg/dL; PSA,Total - Annual Screen 0.83 ng/mL (0.00-4.00); Potassium 3.8 mmol/L (3.5-5.1); Protein, Total 7.1 g/dL (6.4-8.2); Sodium Level 138 mmol/L (136-145); Triglycerides 170 mg/dL; Very Low Density Lipoprotein 34 mg/dL (5-40)
[2024-04-11 13:55] LABS: Hemoglobin A1c 6.9 % (3.8-5.6)
== END | disposition home or self-care (01) ==
LOC: MFPLAB 08:12
PROVIDERS: PCP Family Medicine; Visit Provider Family Medicine
DX: Z12.5 Encounter for screening for malignant neoplasm of prostate (principal); E78.1 Pure hyperglyceridemia
CPT/HCPCS: 36415; 80053; 80061; 83036; 84153; G0103

== ENCOUNTER → 2024-09-08 | Outpatient (CLI) | payer MEDICARE, SELFPAY ==
--- NOTE | 2024-09-08 09:17 | US_ITS ---
PROCEDURE: ULTRASOUND ABDOMEN LIMITED WITH ELASTOGRAPHY REASON FOR EXAM: FATTY LIVER. COMPARISON: None. TECHNIQUE: Right upper quadrant abdominal ultrasound. ElastQ Imaging shear wave elastography for non-invasive assessment of liver tissue stiffness. FINDINGS: LIVER: Size: Enlarged. Length: 21.7 cm Echotexture: Hypoechoic. Contour: Normal Lesions: None identified GALLBLADDER: Gallstones: Multiple hyper echogenic foci layering dependently. Common bile duct: 0.77 cm. PANCREAS: Unremarkable. Nonvisualization of the tail. RIGHT KIDNEY: 12.1 x 7.1 x 6.0 cm. Cortical thickness measures 2.0 cm. ELASTOGRAPHY:: EQI Med: 6.97 kPa EQI Med [place]: 1.52 m/s US/ABD Limited w/ Elastography IMPRESSION: 1. F 2 TO F 3, [id number] LIKELIHOOD OF CLINICALLY SIGNIFICANT HEPATIC F IBROSIS. SIMILAR FINDINGS WERE NOTED ON THE PREVIOUS STUDY. 2. CHOLELITHIASIS. 3. HEPATOMEGALY. 4. STEATOSIS. Reference Values: SRU <1.37 m/s (5.7kPa): No to mild fibrosis 1.37 m/s - 2.2 m/s: Moderate to severe fibrosis >2.2 m/s (15kPa): Significant fibrosis / cirrhosis METAVIR Score F2 or higher: 1.34 m/s (5.7kPa) F3 or higher: 1.55 m/s (7.3kPa) F4: 1.80 m/s (10kPa) * If the IQR/Med is >30%, the variance in the measurements is a large and the a ccuracy of the measurement may be in question. Reading Location: [facility]
[2024-09-08 09:44] LABS: Absolute Lymphocyte Count 1.42 X10^3/uL (0.83-4.51); Absolute Neutrophil Count 3.5 X10^3/uL (2.0-7.7); Basophil# 0.03 X10^3/uL; Basophil% 0.5 % (0-1); Eosinophil# 0.16 X10^3/uL; Eosinophils% 2.9 % (0-5); Hematocrit 36.5 % (40-54); Hemoglobin 12.5 g/dL (13.0-16.5); Lymphocyte # 1.42 X10^3/ul (0.83-4.51); Lymphocyte % 25.5 % (19-41); Mean Corp Hgb Conc 34.2 g/dL (32-36); Mean Corpuscular Hgb 28.8 pg (27.0-32.0); Mean Corpuscular Volume 84.1 fL (80-94); Mean Platelet Vol. 9.6 fl (6.2-12.0); Monocyte# 0.44 X10^3/uL; Monocyte% 7.9 % (0-10); NRBC Flagged by Analyzer 0 % (0-5); Neutrophil # 3.49 X10^3/uL (2.7-7.7); Neutrophil % 62.7 % (47-70); Platelet Count 167 K/mm3 (150-450); RBC Distribution Width CV 12.8 % (11.6-14.6); RBC Distribution Width SD 38.5 fl (35.1-43.9); Red Blood Count 4.34 M/mm3 (4.6-6.2); White Blood Count 5.6 K/mm3 (4.4-11.0)
[2024-09-08 09:47] LABS: Erythrocyte Sedimentation Rate 9 mm/hr (0-20)
[2024-09-08 10:41] LABS: ALB/GLOB Ratio 1.1 RATIO (0.9-2.4); AST(SGOT) 24 U/L (15-37); Alanine Aminotransfer ALT/SGPT 39 U/L (16-61); Albumin, Serum 3.8 g/dL (3.2-5.0); Alkaline Phosphatase 65 U/L (45-117); Anion Gap 7 (5-15); BUN 18 mg/dL (7-18); BUN/Creat Ratio 21.5 RATIO (10-20); CRP 3.16 mg/L (0.0-3.0); Calcium,Total 9.2 mg/dL (8.5-10.1); Chloride 105 mmol/L (98-107); Creatinine, Serum 0.84 mg/dL (0.70-1.30); EST Glomerular Filtration Rate 98 mL/min (>60); Est Glom Filt Rate - Afr Amer 118 mL/min (>60); Globulin 3.5 g/dL (2.2-4.2); Glucose 135 mg/dL (74-106); Potassium 3.9 mmol/L (3.5-5.1); Protein, Total 7.3 g/dL (6.4-8.2); Sodium Level 138 mmol/L (136-145)
== END | disposition home or self-care (01) ==
PROVIDERS: PCP Family Medicine; Referring Provider Internal Medicine Gastroenterology; Visit Provider Internal Medicine Gastroenterology
DX: K50.90 Crohn's disease, unspecified, without complications (principal); L30.8 Other specified dermatitis; K76.0 Fatty (change of) liver, not elsewhere classified
CPT/HCPCS: 36415; 76705; 76981; 80053; 85025; 85652; 86140

== ENCOUNTER → 2024-09-26 | Outpatient (CLI) | payer MEDICARE, SELFPAY | END | disposition home or self-care (01) | LOC: SL 11:58 | PROVIDERS: PCP Family Medicine; Referring Provider Nurse Practitioner Acute Care; Visit Provider Nurse Practitioner Acute Care | DX: G47.33 Obstructive sleep apnea (adult) (pediatric) (principal) | CPT/HCPCS: 98960; G0463 ==

== ENCOUNTER 2024-11-04 19:53 | Inpatient (IN) | payer MEDICARE, SELFPAY ==
[2024-11-04 19:54] VITALS: BP 167/87; PULSE 83; RESP 18; TEMP 36.6; O2SAT 94; BMI 39.5
--- NOTE | 2024-11-04 20:09 | CT_ITS ---
PROCEDURE: ABDOMEN/PELVIS W IV CONT ONLY 11/04/2024 REASON FOR EXAM: GENERALIZED PAIN TECHNIQUE: Abdomen and pelvis CT with intravenous contrast. Coronal and Sagittal reconstruction series were provided. PATIENT PREPARATION: Per protocol ORAL CONTRAST TYPE: None. AMOUNT: mL CONTRAST: Isovue 370 VOLUME: 96 mL Not Provided Gauge IV One or more dose reduction techniques were used (e.g., Automated exposure control, adjustment of the mA and/or kV according to patient size, use of iterative reconstruction technique. RADIATION DOSE SUMMARY: CTDlvol: 44 mGy DLP: 1366 mGycm COMPARISON: CT of the abdomen and pelvis dated 10/28/2022 FINDINGS: Lung bases: Mild dependent atelectasis Liver: Diffuse fatty infiltration. Gallbladder: Unremarkable Spleen: Normal size. Pancreas: Normal size without evidence of mass surrounding inflammation or ductal dilation. Adrenals: Unremarkable Kidneys: Normal renal sizes. No hydronephrosis. Bladder: Unremarkable Reproductive Organs: Unremarkable Bowel: Evaluation of the bowel loops are limited due to lack of oral contrast. The stomach is grossly unremarkable. There are multiple dilated loops of proximal jejunum within the left mid abdomen with air- fluid level, no wall thickening is demonstrated. There is a suspected transition point within the mid abdomen, concerning for small bowel obstruction. The distal small bowel is decompressed. Most of the left colon are under distended limiting evaluation. Appendix: Unremarkable Lymph nodes: Unremarkable Vasculature: Mild diffuse atherosclerotic calcifications are noted. Peritoneum / Retroperitoneum: No free air or free fluid. Bones: Degenerative changes of the lumbar spine. CT/Abdomen/Pelvis W IV Cont ONLY IMPRESSION: Findings concerning for small bowel obstruction as described above. Small lance l follow-through may be helpful for further characterization. Surgical consultation is recommended. Reading [facility]
--- NOTE | 2024-11-04 20:11 | ED.VIS.GI ---
HPI <ADALGISA Hitchcock - Last Filed: 11/04/24 21:59> HPI - GI History of Present Illness Chief Complaint: Abd Pain Narrative Narrative: 68-year-old male with PMH of HTN, HLD, CAD, Crohn's disease on Stelara presents with generalized abdominal pain. He went out to dinner last night and had fried fish. He got home and his stomach felt mildly upset which he thought could have been from the grease. When he woke up this morning he had worsening generalized abdominal pain which has progressed throughout the day. He has decreased appetite but ate crackers and a bagel. No nausea or vomiting. No fever or chills. He he had 2 normal bowel movements this morning which is typical. No melena or hematochezia. He is drinking water and urinating normally. No history of abdominal surgeries. He states he has been on Stelara every 8 weeks for several years and has been stable without any Crohn's flares. He does not smoke or drink alcohol frequently. PFSH <ADALGISA Hitchcock - Last Filed: 11/04/24 21:59> [facility] Medical History Left ventricular hypertrophy Secondary pulmonary arterial hypertension Obstructive sleep apnea Obesity Atherosclerosis of coronary artery of [place] heart without angina pectoris Crohn's disease Hyperlipidemia Essential hypertension Home Medications ?Medication ?Instructions ?Recorded ?Last Taken ?Type aspirin 81 mg chewable tablet 81 mg PO DAILY heart health 04/10/20 04/09/20 07:30 History vnreabjv-yzw-nognc acid 0.4 1 tab PO DAILY vitamin 04/10/20 04/09/20 05:30 History mg-lycopene 300 mcg-lutein 250 mcg tablet ustekinumab 130 mg/26 mL 130 mg IV .COMPLEX 04/27/23 Unknown History intravenous solution (Stelara) hydrochlorothiazide 25 mg tablet 25 mg PO DAILY diuretic #90 tabs 01/24/24 Unknown Rx carvedilol 25 mg tablet 25 mg PO BID BP #180 tabs 07/14/24 Unknown Rx spironolactone 25 mg tablet 25 mg PO DAILY #90 tabs 07/14/24 Unknown Rx amlodipine 5 mg tablet 5 mg PO BID #60 tabs 08/14/24 Unknown Rx hydrocortisone 2.5 % topical 1 applic topical TID PRN rash #454 08/30/24 Unknown Rx ointment grams doxazosin 4 mg tablet 4 mg PO DAILY #90 tabs 09/21/24 Unknown Rx lisinopril 20 mg tablet 20 mg PO BID BP #180 tabs 09/21/24 Unknown Rx Allergy/AdvReac Type Severity Reaction Status Date / Time Bzgllpr-HPD-TjX Reductase AdvReac myalgias Verified 11/04/24 19:56 Inhibitor Family History Mother Cancer Lung Father Alcohol abuse Sister Cancer Lung cancer Pulmonary embolism Surgical History History of coronary artery stent placement (01/30/16) H/O arthroscopic knee surgery History of inguinal hernia repair History of tonsillectomy History of carpal tunnel release of both wrists Social History (Updated 10/11/24 @ 13:36 by Suha Salguero) Smoking Status: Former smoker how long ago did patient quit smokin years ago alcohol intake: current alcohol intake frequency: a few times a month substance use type: does not use caffeine: Yes Type: coffee Number of servings: 1 additional social history: denies vaping, denies edibles, denies marijuana use denies ibuprofen uses aspirin prn ROS <ADALGISA Hitchcock - Last Filed: 11/04/24 21:59> ROS ED ROS Narrative Constitutional: Negative for fever, chills, malaise. CVS: Negative for chest pain. Respiratory: Negative for shortness of breath. GI: Positive for abdominal pain. Negative for nausea, vomiting, diarrhea, constipation, melena, hematochezia. : Negative for dysuria, hematuria or frequency. EXAM <ADALGISA Hitchcock - Last Filed: 11/04/24 21:59> Physical Exam Narrative Exam Narrative: CONST: Patient sitting in no acute distress. EYES: Normal inspection. NECK: Normal inspection. RESP: No respiratory distress, CTAB. CVS: Regular rate and rhythm, no murmur, no gallop. ABD: Soft with generalized tenderness, moderately distended, no guarding or rebound, normal bowel sounds x 4. SKIN: Color normal, no rash, warm, dry, intact. EXTREMITIES: Normal appearance, no pedal edema. NEURO: Alert and answering questions appropriately. PSYCH: Normal affect. Const Vital Signs: 11/04/24 19:54 11/04/24 21:47 Temperature 97.9 F Temperature Source Temporal Pulse Rate 83 80 Respiratory Rate 18 16 Blood Pressure 167/87 H 146/80 H Blood Pressure Mean 113 102 Pulse Ox 94 98 Oxygen Delivery Method Room Air Room Air <Dr. Artemio aCba MD - Last Filed: 11/04/24 21:00> Physical Exam Const Vital Signs: 11/04/24 19:54 11/04/24 21:47 Temperature 97.9 F Temperature Source Temporal Pulse Rate 83 80 Respiratory Rate 18 16 Blood Pressure 167/87 H 146/80 H Blood Pressure Mean 113 102 Pulse Ox 94 98 Oxygen Delivery Method Room Air Room Air MDM <ADALGISA Hitchcock - Last Filed: 11/04/24 21:59> MDM MDM Narrative Medical decision making narrative: History gathered from: Patient and spouse My differential includes but not limited to GERD, cholecystitis, pancreatitis, diverticulitis, Crohn's flare Consults: General surgery, hospitalist 68-year-old male with history of Crohn's disease presents with 24 hours of generalized abdominal pain and distention. No vomiting. Normal 1-2 BMs daily without blood or mucus. He appears well and nontoxic. Vital signs stable. Abdomen is moderately distended without peritoneal signs. Bowel sounds present. CBC, CMP, and lipase are unremarkable. Urinalysis negative. CT scan shows small bowel obstruction with suspected transition point in the mid abdomen. General surgery was consulted and Dr. Valdovinos said he does not need an NG tube at this time since he is not vomiting. Case will be discussed with the hospitalist for admission. I have personally performed a face to face assessment of the patient and have reviewed the JOSEPH Note. I performed a substantive portion of the visit including all aspects of the following. My brown findings include: History is 68-year-old male history of Crohn's disease. No prior abdominal surgery. Complaining of abdominal pain that began this morning. Denies vomiting or diarrhea. No fever. No dysuria. No abdominal trauma. Denies any weight loss. Has never had a bowel obstruction. Exam is [well-appearing 68-year-old male. Vital signs are stable afebrile. H EENT exam unremarkable. Moist mucous members. Lungs clear to auscultation. Heart regular rhythm rate about 80 no murmur. Abdomen mildly distended. Soft minimally tender. Tender diffuse. No hernia or mass. No specific right upper quadrant or right lower quadrant tenderness. No pulsatile mass. No peritoneal signs. Moving all 4 extremities. Nontender no edema. Back nontender. Neurologically is awake alert. No focal motor deficits.] Medical Decision Making [68-year-old male no prior abdominal surgeries with abdominal distention and discomfort. He had a bowel movement today. He denies any dysuria. Clinically potentially a bowel obstruction. Does not come across his gallbladder disease or appendicitis. Not necessarily pancreatitis. He has no urinary symptoms. CAT scan labs to be obtained.] Other additions or changes: [None] Lab Data Labs: Laboratory Results - last 24 hr 11/04/24 11/04/24 20:15 20:57 WBC 10.5 RBC 4.70 Hgb 14.0 Hct 39.6 L MCV 84.3 MCH 29.8 MCHC 35.4 RDW Std Deviation 39.1 RDW Coeff of Iván 12.9 Plt Count 166 MPV 9.5 Immature Gran % (Auto) 0.300 Neut % (Auto) 82.8 H Lymph % (Auto) 8.3 L [place] % (Auto) 7.1 Eos % (Auto) 1.1 Baso % (Auto) 0.4 Absolute Neuts (auto) 8.7 H Absolute Lymphs (auto) 0.87 Nucleated RBC % 0 Sodium 137 Potassium 4.1 Chloride 99 Carbon Dioxide 24.0 Anion Gap 14 BUN 16 Creatinine 0.72 Estim Creat Clear Calc 116.97 Est GFR (MDRD) Non-Af 101 BUN/Creatinine Ratio 22.7 H Glucose 161 H Calcium 10.1 Total Bilirubin 0.65 AST 32 ALT 41 Alkaline Phosphatase 78 Total Protein 7.7 Albumin 4.8 Globulin 2.9 Albumin/Globulin Ratio 1.7 Lipase 18 Urine Color Straw Urine Clarity Clear Urine pH 7.0 Ur Specific [place] 1.005 Urine Protein Negative Urine Glucose (UA) Normal Urine Ketones Negative Urine Occult Blood Negative Urine Nitrite Negative Urine Bilirubin Negative Urine Urobilinogen Normal Ur Leukocyte Esterase Negative Urine RBC 0 SEEN Urine WBC 0 SEEN Ur Squamous Epith Cells 0 SEEN Urine Bacteria RARE Urine Mucus 0 SEEN Radiography Diagnostic Testing: Clinical Impression(s) from Imaging Studies Abdomen/Pelvis CT 11/04/24 20:09 IMPRESSION: Findings concerning for small bowel obstruction as described above. Small bowel follow-through may be helpful for further characterization. Surgical consultation is recommended. Reading Location: [facility] <Dr. Artemio Caba MD - Last Filed: 11/04/24 21:00> [facility] Narrative Medical decision making narrative: History gathered from: Patient and spouse My differential includes but not limited to GERD, cholecystitis, pancreatitis, diverticulitis, Crohn's flare 68-year-old male presents with generalized abdominal pain that started last night. He has no vomiting or diarrhea. He appears well and nontoxic. Vital signs stable. Normal cardiopulmonary exam. Abdomen moderately distended with generalized tenderness but no peritoneal signs. I have personally performed a face to face assessment of the patient and have reviewed the JOSEPH Note. I performed a substantive portion of the visit including all aspects of the following. My brown findings include: History is 68-year-old male history of Crohn's disease. No prior abdominal surgery. Complaining of abdominal pain that began this morning. Denies vomiting or diarrhea. No fever. No dysuria. No abdominal trauma. Denies any weight loss. Has never had a bowel obstruction. Exam is [well-appearing 68-year-old male. Vital signs are stable afebrile. H EENT exam unremarkable. Moist mucous members. Lungs clear to auscultation. Heart regular rhythm rate about 80 no murmur. Abdomen mildly distended. Soft minimally tender. Tender diffuse. No hernia or mass. No specific right upper quadrant or right lower quadrant tenderness. No pulsatile mass. No peritoneal signs. Moving all 4 extremities. Nontender no edema. Back nontender. Neurologically is awake alert. No focal motor deficits.] Medical Decision Making [68-year-old male no prior abdominal surgeries with abdominal distention and discomfort. He had a bowel movement today. He denies any dysuria. Clinically potentially a bowel obstruction. Does not come across his gallbladder disease or appendicitis. Not necessarily pancreatitis. He has no urinary symptoms. CAT scan labs to be obtained.] Other additions or changes: [None] History & Record Review Discussion w/independent historian: Patient and Family Additional record(s) reviewed:: Prior inpatient record, Prior outpatient record, Prior ED visit and Prior labs Lab Data Attestation: I reviewed the patient's lab results. Lab results narrative: CBC white count of 10.5. H&H 14 and 39. Platelets 166. Electrolytes show a gap of 14. Normal BUN and creatinine. Glucose 16. Liver enzymes are normal. Lipase is normal at 18. Labs: Laboratory Results - last 24 hr 11/04/24 11/04/24 20:15 20:57 WBC 10.5 RBC 4.70 Hgb 14.0 Hct 39.6 L MCV 84.3 MCH 29.8 MCHC 35.4 RDW Std Deviation 39.1 RDW Coeff of Iván 12.9 Plt Count 166 MPV 9.5 Immature Gran % (Auto) 0.300 Neut % (Auto) 82.8 H Lymph % (Auto) 8.3 L [place] % (Auto) 7.1 Eos % (Auto) 1.1 Baso % (Auto) 0.4 Absolute Neuts (auto) 8.7 H Absolute Lymphs (auto) 0.87 Nucleated RBC % 0 Sodium 137 Potassium 4.1 Chloride 99 Carbon Dioxide 24.0 Anion Gap 14 BUN 16 Creatinine 0.72 Estim Creat Clear Calc 116.97 Est GFR (MDRD) Non-Af 101 BUN/Creatinine Ratio 22.7 H Glucose 161 H Calcium 10.1 Total Bilirubin 0.65 AST 32 ALT 41 Alkaline Phosphatase 78 Total Protein 7.7 Albumin 4.8 Globulin 2.9 Albumin/Globulin Ratio 1.7 Lipase 18 Urine Color Straw Urine Clarity Clear Urine pH 7.0 Ur Specific [place] 1.005 Urine Protein Negative Urine Glucose (UA) Normal Urine Ketones Negative Urine Occult Blood Negative Urine Nitrite Negative Urine Bilirubin Negative Urine Urobilinogen Normal Ur Leukocyte Esterase Negative Urine RBC 0 SEEN Urine WBC 0 SEEN Ur Squamous Epith Cells 0 SEEN Urine Bacteria RARE Urine Mucus 0 SEEN Radiography Diagnostic Testing: Clinical Impression(s) from Imaging Studies Abdomen/Pelvis CT 11/04/24 20:09 IMPRESSION: Findings concerning for small bowel obstruction as described above. Small bowel follow-through may be helpful for further characterization. Surgical consultation is recommended. Reading Location: [facility] Discharge Plan Triage Chief Complaint: Abd Pain ED Midlevel Provider: Suzy Nam ED Provider: Artemio Caba Dx/Rx/DC Orders Clinical Impression: SBO (small bowel obstruction), History of Crohn's disease Prescriptions: No Action Stelara 130 mg/26 mL solution 130 mg IV .COMPLEX Rx Instructions: 130 mg intravenously once every 8 weeks hydrocortisone 2.5 % ointment 1 applic topical TID PRN (Reason: rash) Qty: 454 3RF aspirin 81 MG tablet,chewable 81 mg PO DAILY dtbxhqtr-hoz-NZ-lycopen-lutein 1 EACH tablet 1 tab PO DAILY hydrochlorothiazide 25 mg tablet 25 mg PO DAILY Qty: 90 3RF spironolactone 25 mg tablet 25 mg PO DAILY Qty: 90 3RF carvedilol 25 mg tablet 25 mg PO BID Qty: 180 3RF amlodipine 5 mg tablet 5 mg PO BID Qty: 60 3RF doxazosin 4 mg tablet 4 mg PO DAILY Qty: 90 3RF lisinopril 20 mg tablet 20 mg PO BID Qty: 180 3RF Primary Care Provider: Alvaro St Referrals: Alvaro St MD [Primary Care Provider] - Print Language: Greenlandic
[2024-11-04 20:22] LABS: Absolute Lymphocyte Count 0.87 X10^3/uL (0.83-4.51); Absolute Neutrophil Count 8.7 X10^3/uL (2.0-7.7); Basophil# 0.04 X10^3/uL; Basophil% 0.4 % (0-1); Eosinophil# 0.11 X10^3/uL; Eosinophils% 1.1 % (0-5); Hematocrit 39.6 % (40-54); Lymphocyte # 0.87 X10^3/ul (0.83-4.51); Lymphocyte % 8.3 % (19-41); Mean Corp Hgb Conc 35.4 g/dL (32-36); Mean Corpuscular Hgb 29.8 pg (27.0-32.0); Mean Corpuscular Volume 84.3 fL (80-94); Mean Platelet Vol. 9.5 fl (6.2-12.0); Monocyte# 0.74 X10^3/uL; Monocyte% 7.1 % (0-10); NRBC Flagged by Analyzer 0 % (0-5); Neutrophil # 8.68 X10^3/uL (2.7-7.7); Neutrophil % 82.8 % (47-70); Platelet Count 166 K/mm3 (150-450); RBC Distribution Width CV 12.9 % (11.6-14.6); RBC Distribution Width SD 39.1 fl (35.1-43.9); White Blood Count 10.5 K/mm3 (4.4-11.0)
[2024-11-04] MEDS: Morphine 4 MG/ML Syringe IV (20:22)
[2024-11-04] MEDS: Ondansetron 4 MG/2 ML Vial IV ×2 (20:22→22:52)
[2024-11-04] MEDS: 0.9% Normal Saline (1000mL) 1,000 ML 999 ML IV (20:22)
[2024-11-04 20:54] LABS: ALB/GLOB Ratio 1.7 RATIO (0.9-2.4); AST(SGOT) 32 U/L (<=37); Alanine Aminotransfer ALT/SGPT 41 U/L (<=46); Albumin, Serum 4.8 g/dL (3.4-4.8); Alkaline Phosphatase 78 U/L (40-129); Anion Gap 14 (5-15); BUN 16 mg/dL (4-19); BUN/Creat Ratio 22.7 RATIO (10-20); Calcium,Total 10.1 mg/dL (7.6-11.0); Chloride 99 mmol/L (98-108); Creatinine, Serum 0.72 mg/dL (0.70-1.20); EST Glomerular Filtration Rate 101 (>60); Estimated Creatinine Clearance 116.97 ml/min (50-250); Globulin 2.9 g/dL (2.2-4.2); Glucose 161 mg/dL (70-99); Lipase 18 U/L (13-75); Potassium 4.1 mmol/L (3.3-5.1); Protein, Total 7.7 g/dL (5.9-8.4); Sodium Level 137 mmol/L (133-145); Total Bilirubin 0.65 mg/dL (0.00-1.30)
[2024-11-04 21:02] LABS: Mucous, Urine 0 SEEN /hpf (<or=2+); Red Blood Cells-Urine 0 SEEN /hpf (0-5); Squamous Epithelial Cells - UA 0 SEEN /hpf (0-5); White Blood Cells 0 SEEN /hpf (0-5)
[2024-11-04 21:05] LABS: Color, Urine Straw (Yellow); Glucose, Dipstick Normal (Normal); Ketone-Dipstick Negative (Negative); Leukocyte Esterase-Dipstick Negative /ul (Negative); Nitrite-Dipstick Negative (Negative); Occult Blood-Urine Negative /ul (Negative); Protein-Dipstick Negative (Negative); Specific Gravity, Urine 1.005 (1.002-1.030); Urine Bilirubin Dipstick Negative (Negative); Urine Clarity Clear (Clear); Urine Urobilinogen Normal (Normal)
[2024-11-04 21:12] LABS: Bacteria RARE /hpf (None Seen)
[2024-11-04 21:47] VITALS: BP 146/80; PULSE 80; RESP 16; O2SAT 98
[2024-11-04] MEDS: morphine 8 MG/ML Syringe 6 MG IV (22:08)
[2024-11-04 22:11] VITALS: BP 161/86; PULSE 80; RESP 12; TEMP 36.7; O2SAT 95
--- NOTE | 2024-11-04 22:13 | PCM.HP.STD ---
HPI - General General Date of Admission: 11/04/24 Date of Service: 11/04/24 Chief Complaint: Abdominal pain and distention HPI Narrative ARCHIE LEON, is a 68 M who presented to [facility] ED on 11/04/2024 with abdominal pain and distention. Medical history significant for well-controlled Crohn's disease, class II obesity, CAD with stenting, hypertension and hyperlipidemia. No prior history of abdominal surgeries. Patient was in normal state of health yesterday evening. Went out to dinner and had fried fish, and when he got home his stomach felt upset. This morning when he woke up he had worsening generalized abdominal pain that progressed throughout today. Also noted that his abdomen felt more distended. Had decreased appetite but no nausea or vomiting. He did report having 2 normal bowel movements this morning. He is on Stelara every 8 weeks for Crohn's and it has been very well-controlled with no flares for several years. In the ED he was mildly hypertensive but otherwise hemodynamically stable on room air. Labs were benign. However, CT abdomen pelvis with IV contrast showed multiple dilated loops of proximal jejunum with air-fluid level and suspected transition point within the mid abdomen concerning for small bowel obstruction. Case was discussed with Dr. Valdovinos who agreed that findings appeared consistent with small bowel distraction. However, given patient is stable with no nausea/vomiting and has no prior abdominal surgeries, recommended admission to medicine with surgical consult for further management. Hospitalist was then contacted for admission. I saw the patient at bedside in the ED, was present. Patient was sitting back comfortably in bed, conversing normally and in no acute distress. Notably he was given doses of morphine and Zofran in the ED and had improvement in pain and discomfort with these medications. States his abdomen feels distended currently but he denies any pain or nausea. Has not passed any gas since arriving to the hospital. He otherwise feels well, denies any other concerns at this time. [facility] Medical History Left ventricular hypertrophy Secondary pulmonary arterial hypertension Obstructive sleep apnea Obesity Atherosclerosis of coronary artery of [place] heart without angina pectoris Crohn's disease Hyperlipidemia Essential hypertension Home Medications ?Medication ?Instructions ?Recorded ?Last Taken ?Type aspirin 81 mg chewable tablet 81 mg PO DAILY [facility] 04/10/20 04/09/20 07:30 History brwmjwho-uif-qgstv acid 0.4 1 tab PO DAILY vitamin 04/10/20 04/09/20 05:30 History mg-lycopene 300 mcg-lutein 250 mcg tablet ustekinumab 130 mg/26 mL 130 mg IV .COMPLEX 04/27/23 Unknown History intravenous solution (Stelara) hydrochlorothiazide 25 mg tablet 25 mg PO DAILY diuretic #90 tabs 01/24/24 Unknown Rx carvedilol 25 mg tablet 25 mg PO BID BP #180 tabs 07/14/24 Unknown Rx spironolactone 25 mg tablet 25 mg PO DAILY #90 tabs 07/14/24 Unknown Rx amlodipine 5 mg tablet 5 mg PO BID #60 tabs 08/14/24 Unknown Rx hydrocortisone 2.5 % topical 1 applic topical TID PRN rash #454 08/30/24 Unknown Rx ointment grams doxazosin 4 mg tablet 4 mg PO DAILY #90 tabs 09/21/24 Unknown Rx lisinopril 20 mg tablet 20 mg PO BID BP #180 tabs 09/21/24 Unknown Rx Allergy/AdvReac Type Severity Reaction Status Date / Time Irhdctc-AVN-FnL Reductase AdvReac myalgias Verified 11/04/24 19:56 Inhibitor Family History Mother Cancer Lung Father Alcohol abuse Sister Cancer Lung cancer Pulmonary embolism Surgical History History of coronary artery stent placement (01/30/16) H/O arthroscopic knee surgery History of inguinal hernia repair History of tonsillectomy History of carpal tunnel release of both wrists Social History (Updated 10/11/24 @ 13:36 by Suha Salguero) Smoking Status: Former smoker how long ago did patient quit smokin years ago alcohol intake: current alcohol intake frequency: a few times a month substance use type: does not use caffeine: Yes Type: coffee Number of servings: 1 additional social history: denies vaping, denies edibles, denies marijuana use denies ibuprofen uses aspirin prn ROS Constitutional Constitutional: Denies chills, fatigue, fever(s) or weakness Cardiovascular Cardiovascular: Denies chest pain Respiratory/Chest Respiratory/Chest: Denies shortness of breath at rest Gastrointestinal Gastrointestinal: Reports abdominal pain and nausea; Denies constipation, diarrhea or vomiting Musculoskeletal Musculoskeletal: Denies arthralgias or myalgias Vital Signs Vital Signs Vital Signs: 11/04/24 19:54 11/04/24 21:47 11/04/24 22:11 Temperature 97.9 F 98.1 F Temperature Source Temporal Pulse Rate 83 80 80 Respiratory Rate 18 16 12 Blood Pressure 167/87 H 146/80 H 161/86 H Blood Pressure Mean 113 102 111 Pulse Ox 94 98 95 Oxygen Delivery Method Room Air Room Air Weight Weight: 121.563 kg Body Mass Index (BMI) 39.5 Physical Exam Const alert, oriented x3 and no apparent distress Constitutional Narrative: Pleasant upper middle-aged male, class II obesity, sitting back comfortably in bed, conversing normally, in no acute distress. General Appearance: cooperative and comfortable HEENT normocephalic, head/scalp atraumatic, hearing grossly normal bilaterally, nasal mucous membranes and turbinates normal and moist oral mucous membranes Eyes PERRL, EOMs intact bilaterally and conjunctivae normal Neck full ROM Chest inspection of chest normal Resp normal respiratory effort, normal air movement, no use of accessory muscles and clear to auscultation bilaterally Cardio regular rate, regular rhythm, no murmurs and peripheral pulses 2+ throughout GI GI Narrative: Abdomen mild to moderately distended but soft and nontender to palpation. Mildly hyperactive bowel sounds noted. Back/Spine normal ROM Extremity normal to inspection, full ROM and no pedal edema Skin no rashes or lesions noted Psych mental status grossly normal Results Lab / Micro Data 11/04/24 20:15 11/04/24 20:15 Labs: Laboratory Results - last 24 hr 11/04/24 20:15: WBC 10.5, RBC 4.70, Hgb 14.0, Hct 39.6 L, MCV 84.3, MCH 29.8, MCHC 35.4, RDW Std Deviation 39.1, RDW Coeff of Iván 12.9, Plt Count 166, MPV 9.5, Immature Gran % (Auto) 0.300, Neut % (Auto) 82.8 H, Lymph % (Auto) 8.3 L, [place] % (Auto) 7.1, Eos % (Auto) 1.1, Baso % (Auto) 0.4, Absolute Neuts (auto) 8.7 H, Absolute Lymphs (auto) 0.87, Nucleated RBC % 0, Sodium 137, Potassium 4.1, Chloride 99, Carbon Dioxide 24.0, Anion Gap 14, BUN 16, Creatinine 0.72, Estim Creat Clear Calc 116.97, Est GFR (MDRD) Non-Af 101, BUN/Creatinine Ratio 22.7 H, Glucose 161 H, Calcium 10.1, Total Bilirubin 0.65, AST 32, ALT 41, Alkaline Phosphatase 78, Total Protein 7.7, Albumin 4.8, Globulin 2.9, Albumin/Globulin Ratio 1.7, Lipase 18 11/04/24 20:57: Urine Color Straw, Urine Clarity Clear, Urine pH 7.0, Ur Specific [place] 1.005, Urine Protein Negative, Urine Glucose (UA) Normal, Urine Ketones Negative, Urine Occult Blood Negative, Urine Nitrite Negative, Urine Bilirubin Negative, Urine Urobilinogen Normal, Ur Leukocyte Esterase Negative, Urine RBC 0 SEEN, Urine WBC 0 SEEN, Ur Squamous Epith Cells 0 SEEN, Urine Bacteria RARE, Urine Mucus 0 SEEN Imaging Radiology Impression Abdomen/Pelvis CT 11/04/24 20:09 IMPRESSION: Findings concerning for small bowel obstruction as described above. Small bowel follow-through may be helpful for further characterization. Surgical consultation is recommended. Reading Location: [facility] Assessment & Plan Assessment/Plan (1) SBO (small bowel obstruction): PLAN: Plan Patient is a 68-year-old male who presented to [facility] ED on 11/04/24 with abdominal pain and distention. 1. Small bowel obstruction ? Admit under inpatient status to [facility]. General surgery consulted. CT abdomen pelvis on admit showed multiple dilated loops of proximal jejunum with suspected transition point in mid abdomen concerning for SBO. No prior abdominal surgeries. Crohn's disease has been well-controlled as noted below but this appears to be most likely cause of SBO. Patient with mild nausea and no vomiting. Per surgery, no need for NG tube at this time. Will monitor and if not improved by tomorrow, will likely do small bowel follow-through study for further evaluation and management. Maintain n.p.o. status for now. Will continue maintenance IV fluids overnight. 2. Crohn's disease ? Follows with Dr. Chauhan. Has been on Stelara for the past few years with very good control of Crohn's disease. No Crohn's flares in several years. No inpatient GI needs at this time. 3. History of CAD with stenting, hypertension ? Stable. Continue home aspirin, amlodipine, carvedilol and doxazosin. Will hold home lisinopril, hydrochlorothiazide and spironolactone for now but can restart as needed. 4. Class II obesity with VEL ? BMI 39 on admit. Complicates hospital course, care and prognosis. Encouraged weight loss. Continue CPAP at night. DVT prophylaxis: Lovenox CODE STATUS: Full code, verified Expected disposition: Home, 2 to 3 days Total clinical time spent by myself addressing the patient's medical issues, reviewing all the data, and collaborating with patient's care team: 75 minutes. Charges/Coding Visit Charges Inpatient E&M: 61297 Init Hosp L3
[2024-11-04 22:21] VITALS: O2SAT 82; O2SAT 93
[2024-11-04 22:31] VITALS: BMI 40.0
[2024-11-04 22:44] VITALS: BP 143/80; PULSE 82; RESP 18; TEMP 36.6; O2SAT 94
[2024-11-04] MEDS: Lactated Ringers 1,000 ML 75 ML IV (22:52)
[2024-11-04] MEDS: Insulin Lispro 100 UNIT/ML INSULN.PEN SC (23:31)
[2024-11-04 23:35] VITALS: O2SAT 96
--- NOTE | 2024-11-04 23:56 | CPS ---
[2335] Sleep lab machine set-up for pt. tonight for VEL. CPAP 10 with 2L bleed-in. 2L required for pt. due to morphine given for pain.
[2024-11-05] VITALS (11 sets, daily range): BP systolic 128–147; BP diastolic 57–84; PULSE 46–64; RESP 11–16; TEMP 36.3–36.8; O2SAT 90–99
[2024-11-05] LABS: Bedside Glucose 179 mg/dL (74-106)
[2024-11-05] MEDS: HYDROmorphone 0.5 MG/0.5 ML SYRINGE IV (02:45)
[2024-11-05] MEDS: proCHLORPERazine 10 MG/2 ML Vial 5 MG IV (02:45)
[2024-11-05] MEDS: Insulin Lispro 100 UNIT/ML INSULN.PEN SC (05:36)
[2024-11-05 06:33] LABS: Hematocrit 38.4 % (40-54); Hemoglobin 13.2 g/dL (13.0-16.5); Mean Corp Hgb Conc 34.4 g/dL (32-36); Mean Corpuscular Hgb 29.5 pg (27.0-32.0); Mean Corpuscular Volume 85.7 fL (80-94); Mean Platelet Vol. 9.7 fl (6.2-12.0); Platelet Count 172 K/mm3 (150-450); RBC Distribution Width CV 13.2 % (11.6-14.6); RBC Distribution Width SD 41.1 fl (35.1-43.9); Red Blood Count 4.48 M/mm3 (4.6-6.2); White Blood Count 11.3 K/mm3 (4.4-11.0)
[2024-11-05 06:48] LABS: Anion Gap 12 (5-15); BUN 18 mg/dL (4-19); Calcium,Total 9.6 mg/dL (7.6-11.0); Chloride 102 mmol/L (98-108); Creatinine, Serum 0.74 mg/dL (0.70-1.20); EST Glomerular Filtration Rate 100 (>60); Estimated Creatinine Clearance 117.65 ml/min (50-250); Glucose 194 mg/dL (70-99); Potassium 4.2 mmol/L (3.3-5.1); Sodium Level 138 mmol/L (133-145)
[2024-11-05 06:58] LABS: Bedside Glucose 199 mg/dL (74-106)
--- NOTE | 2024-11-05 07:29 | PCM.PN.HOSP ---
Reason for Visit Reason for Visit: Diagnoses Unspecified intestinal obstruction, unspecified as to partial versus complete obstruction (11/04/24) Objective Data Objective Data Vital Signs: Vital Signs Temp Pulse Resp BP Pulse Ox O2 Del Method O2 Flow Rate 97.3 F L 56 L 16 136/84 H 94 Room Air 2 11/05/24 05:30 11/05/24 05:30 11/05/24 05:30 11/05/24 05:30 11/05/24 05:30 11/05/24 05:30 11/04/24 23:35 Oxygen Flow Rate (L/min) 2 Oxygen Delivery Method Room Air Weight: 270 lb 15.17 oz Body Mass Index (BMI) 40.0 Intake & Output: Intake and Output for Last 24 Hours 11/03/24 11/04/24 11/05/24 23:59 23:59 23:59 Intake Total 1000 / 1050 100 / 100 Balance 1000 / 1050 100 / 100 Lab / Micro Data 11/05/24 05:58 11/05/24 05:58 Labs: Laboratory Results - last 24 hr 11/04/24 20:15: WBC 10.5, RBC 4.70, Hgb 14.0, Hct 39.6 L, MCV 84.3, MCH 29.8, MCHC 35.4, RDW Std Deviation 39.1, RDW Coeff of Iván 12.9, Plt Count 166, MPV 9.5, Immature Gran % (Auto) 0.300, Neut % (Auto) 82.8 H, Lymph % (Auto) 8.3 L, [place] % (Auto) 7.1, Eos % (Auto) 1.1, Baso % (Auto) 0.4, Absolute Neuts (auto) 8.7 H, Absolute Lymphs (auto) 0.87, Nucleated RBC % 0, Sodium 137, Potassium 4.1, Chloride 99, Carbon Dioxide 24.0, Anion Gap 14, BUN 16, Creatinine 0.72, Estim Creat Clear Calc 116.97, Est GFR (MDRD) Non-Af 101, BUN/Creatinine Ratio 22.7 H, Glucose 161 H, Calcium 10.1, Total Bilirubin 0.65, AST 32, ALT 41, Alkaline Phosphatase 78, Total Protein 7.7, Albumin 4.8, Globulin 2.9, Albumin/Globulin Ratio 1.7, Lipase 18 11/04/24 20:57: Urine Color Straw, Urine Clarity Clear, Urine pH 7.0, Ur Specific [place] 1.005, Urine Protein Negative, Urine Glucose (UA) Normal, Urine Ketones Negative, Urine Occult Blood Negative, Urine Nitrite Negative, Urine Bilirubin Negative, Urine Urobilinogen Normal, Ur Leukocyte Esterase Negative, Urine RBC 0 SEEN, Urine WBC 0 SEEN, Ur Squamous Epith Cells 0 SEEN, Urine Bacteria RARE, Urine Mucus 0 SEEN 11/04/24 23:28: POC Glucose 179 H 11/05/24 05:35: POC Glucose 199 H 11/05/24 05:58: WBC 11.3 H, RBC 4.48 L, Hgb 13.2, Hct 38.4 L, MCV 85.7, MCH 29.5, MCHC 34.4, RDW Std Deviation 41.1, RDW Coeff of Iván 13.2, Plt Count 172, MPV 9.7, Sodium 138, Potassium 4.2, Chloride 102, Carbon Dioxide 24.0, Anion Gap 12, BUN 18, Creatinine 0.74, Estim Creat Clear Calc 117.65, Est GFR (MDRD) Non-Af 100, BUN/Creatinine Ratio 24.0 H, Glucose 194 H, Calcium 9.6 Radiography Diagnostic Testing: Radiology Impression Abdomen/Pelvis CT 11/04/24 20:09 IMPRESSION: Findings concerning for small bowel obstruction as described above. Small bowel follow-through may be helpful for further characterization. Surgical consultation is recommended. Reading [facility] Physical Exam Narrative Seen and examined. Patient complain of abdominal discomfort progressed pain and distention for last 2 days got worse yesterday. Patient has history of Crohn's disease on [facility]. No history of abdominal surgery. Last BM was yesterday. Patient is still passing flatus. No fever. Physical exam General: Alert, Oriented x3, Cooperative. Morbid obesity BMI 40.0 kg/m? HEENT: Atraumatic, PERRLA, EOMI, Normocephalic Oral: No Gingival or Mucosal Lesions/ Ulcerations Neck: Supple, No JVD, Negative Carotid Bruits Chest wall/Lungs: Air entry diminished in bilateral lung bases. No crepitation/rhonchi Cardiovascular: Regular rate, Regular Rhythm, Normal S1, Normal S2, No M/G/R Abdomen: Bowel Sounds hyper. Mild distention. No guarding/rigidity. No acute tenderness or rebound tenderness : No dysuria. No renal angle tenderness. No suprapubic tenderness. Extremities: No edema, Capillary Refill Less than 3 Seconds Skin: No rashes, No breakdown Musculoskeletal: No Tenderness to Palpation of Joints or Extremities Neurological: Cranial nerves II-XII grossly intact, DTR 2+/4. No acute focal neurological deficit. Psych/Mental Status: Normal Affect, Appropriate. Assessment & Plan Assessment/Plan (1) SBO (small bowel obstruction): PLAN: Plan Patient is a 68-year-old male who presented to [facility] ED on 11/04/24 with abdominal pain and distention on the day of admission. Denies nausea and vomiting 1. Small bowel obstruction ? Admit under inpatient status to [facility]. General surgery consulted. CT abdomen pelvis on admit showed multiple dilated loops of proximal jejunum with suspected transition point in mid abdomen concerning for SBO. No prior abdominal surgeries. No prior history of surgery. General surgery is consulted. Monitor conservatively with abdominal exam and KUB. Continue IV fluid, n.p.o. no need for NGT 2. Crohn's disease ? Follows with Dr. Chauhan. Has been on Stelara for the past few years with very good control of Crohn's disease. No Crohn's flares in several years. No inpatient GI needs at this time. 3. History of CAD with stenting, hypertension ? Stable. Continue home aspirin, amlodipine, carvedilol and doxazosin. Will hold home lisinopril, hydrochlorothiazide and spironolactone for now but can restart as needed. 4. Class II obesity with VEL ? BMI 39 on admit. Complicates hospital course, care and prognosis. Encouraged weight loss. Continue CPAP at night. DVT prophylaxis: Lovenox CODE STATUS: Full code, verified Charges/Coding Visit Charges Inpatient E&M: 14107 Subs Hosp L2
--- NOTE | 2024-11-05 08:41 | EX.PCM.CON.S ---
Assessment & Plan Assessment/Plan (1) SBO (small bowel obstruction): PLAN: The patient appears to have a small bowel obstruction on his CT scan. There is dilated small bowel proximally and collapsed small bowel distally. The patient does have Crohn's disease so he may be having a stricture or stenosis from the Crohn's. The patient reports that he passed a lot of gas afterwards and is feeling much better than he was when he came in. I am ordering a KUB to evaluate. I will order another KUB for the morning. Continue n.p.o. for today. Continue IV fluids. Freddy Valdovinos MD Pager: [facility] [address] [place] [address], [address] [place] [address] Office: HPI Consult Data Date of Consult: 11/05/24 HPI Narrative HPI Narrative: ARCHIE LEON, is a 68 M who presents with abdominal pain and bloating. The patient reports that he was feeling very bloated yesterday and came to the emergency room and was having abdominal pain that was sort of diffuse. He reports that he vomited once last night after the CAT scan. He also reports that he passed a lot of gas overnight and is feeling much better currently. He denies any further vomiting and he is not nauseous. He is not having any further abdominal pain. Patient does have history of Crohn's disease. [facility] Medical History Left ventricular hypertrophy Secondary pulmonary arterial hypertension Obstructive sleep apnea Obesity Atherosclerosis of coronary artery of [place] heart without angina pectoris Crohn's disease Hyperlipidemia Essential hypertension Home Medications ?Medication ?Instructions ?Recorded ?Last Taken ?Type aspirin 81 mg chewable tablet 81 mg PO DAILY heart health 04/10/20 04/09/20 07:30 History ownlkoja-fvu-pjpez acid 0.4 1 tab PO DAILY vitamin 04/10/20 04/09/20 05:30 History mg-lycopene 300 mcg-lutein 250 mcg tablet ustekinumab 130 mg/26 mL 130 mg IV .COMPLEX 04/27/23 Unknown History intravenous solution (Stelara) hydrochlorothiazide 25 mg tablet 25 mg PO DAILY diuretic #90 tabs 01/24/24 Unknown Rx carvedilol 25 mg tablet 25 mg PO BID BP #180 tabs 07/14/24 Unknown Rx spironolactone 25 mg tablet 25 mg PO DAILY #90 tabs 07/14/24 Unknown Rx amlodipine 5 mg tablet 5 mg PO BID #60 tabs 08/14/24 Unknown Rx hydrocortisone 2.5 % topical 1 applic topical TID PRN rash #454 08/30/24 Unknown Rx ointment grams doxazosin 4 mg tablet 4 mg PO DAILY #90 tabs 09/21/24 Unknown Rx lisinopril 20 mg tablet 20 mg PO BID BP #180 tabs 09/21/24 Unknown Rx Allergy/AdvReac Type Severity Reaction Status Date / Time Yvejhhz-NON-JxK Reductase AdvReac myalgias Verified 11/04/24 19:56 Inhibitor Family History Mother Cancer Lung Father Alcohol abuse Sister Cancer Lung cancer Pulmonary embolism Surgical History History of coronary artery stent placement (01/30/16) H/O arthroscopic knee surgery History of inguinal hernia repair History of tonsillectomy History of carpal tunnel release of both wrists Social History (Updated 10/11/24 @ 13:36 by Suha Salguero) Smoking Status: Former smoker how long ago did patient quit smokin years ago alcohol intake: current alcohol intake frequency: a few times a month substance use type: does not use caffeine: Yes Type: coffee Number of servings: 1 additional social history: denies vaping, denies edibles, denies marijuana use denies ibuprofen uses aspirin prn ROS Constitutional Constitutional: Denies anorexia, chills or fatigue Eyes Eyes: Denies blurry vision ENT HEENT: Denies abnormal hearing Cardiovascular Cardiovascular: Denies chest pain Respiratory/Chest Respiratory/Chest: Denies cough or dyspnea Gastrointestinal Gastrointestinal: Reports abdominal pain, nausea and vomiting; Denies change in bowel habits or coffee ground emesis Genitourinary Genitourinary: Denies difficulty urinating Integumentary Integumentary: Denies jaundice or new lesions Neurologic Neurologic: Denies abnormal gait Endocrine Endocrinology: Denies flushing or heat intolerance Hematologic/Lymphatic Hematologic/Lymphatic: Denies easy bleeding Lab / Micro Data 11/05/24 05:58 11/05/24 05:58 Labs: Laboratory Results - last 24 hr 11/04/24 20:15: WBC 10.5, RBC 4.70, Hgb 14.0, Hct 39.6 L, MCV 84.3, MCH 29.8, MCHC 35.4, RDW Std Deviation 39.1, RDW Coeff of Iván 12.9, Plt Count 166, MPV 9.5, Immature Gran % (Auto) 0.300, Neut % (Auto) 82.8 H, Lymph % (Auto) 8.3 L, [place] % (Auto) 7.1, Eos % (Auto) 1.1, Baso % (Auto) 0.4, Absolute Neuts (auto) 8.7 H, Absolute Lymphs (auto) 0.87, Nucleated RBC % 0, Sodium 137, Potassium 4.1, Chloride 99, Carbon Dioxide 24.0, Anion Gap 14, BUN 16, Creatinine 0.72, Estim Creat Clear Calc 116.97, Est GFR (MDRD) Non-Af 101, BUN/Creatinine Ratio 22.7 H, Glucose 161 H, Calcium 10.1, Total Bilirubin 0.65, AST 32, ALT 41, Alkaline Phosphatase 78, Total Protein 7.7, Albumin 4.8, Globulin 2.9, Albumin/Globulin Ratio 1.7, Lipase 18 11/04/24 20:57: Urine Color Straw, Urine Clarity Clear, Urine pH 7.0, Ur Specific [place] 1.005, Urine Protein Negative, Urine Glucose (UA) Normal, Urine Ketones Negative, Urine Occult Blood Negative, Urine Nitrite Negative, Urine Bilirubin Negative, Urine Urobilinogen Normal, Ur Leukocyte Esterase Negative, Urine RBC 0 SEEN, Urine WBC 0 SEEN, Ur Squamous Epith Cells 0 SEEN, Urine Bacteria RARE, Urine Mucus 0 SEEN 11/04/24 23:28: POC Glucose 179 H 11/05/24 05:35: POC Glucose 199 H 11/05/24 05:58: WBC 11.3 H, RBC 4.48 L, Hgb 13.2, Hct 38.4 L, MCV 85.7, MCH 29.5, MCHC 34.4, RDW Std Deviation 41.1, RDW Coeff of Iván 13.2, Plt Count 172, MPV 9.7, Sodium 138, Potassium 4.2, Chloride 102, Carbon Dioxide 24.0, Anion Gap 12, BUN 18, Creatinine 0.74, Estim Creat Clear Calc 117.65, Est GFR (MDRD) Non-Af 100, BUN/Creatinine Ratio 24.0 H, Glucose 194 H, Calcium 9.6 Imaging Radiology Impression Abdomen/Pelvis CT 11/04/24 20:09 IMPRESSION: Findings concerning for small bowel obstruction as described above. Small bowel follow-through may be helpful for further characterization. Surgical consultation is recommended. Reading Location: [facility]
[2024-11-05] MEDS: Doxazosin 4 MG Tablet PO (08:52)
[2024-11-05] MEDS: amLODIPine 5 MG Tablet PO (08:52)
[2024-11-05] MEDS: Enoxaparin 40 MG/0.4 ML Syringe SC (08:52)
[2024-11-05] MEDS: Carvedilol 25 MG Tablet PO (08:52)
[2024-11-05] MEDS: Aspirin 81 MG TAB.CHEW PO (08:52)
--- NOTE | 2024-11-05 09:25 | RAD_ITS ---
PROCEDURE: ABDOMEN SINGLE VIEW (PORTABLE) 11/05/2024 REASON FOR EXAM: SBO TECHNIQUE: Single view abdomen. COMPARISON: CT abdomen pelvis 11/04/2024. FINDINGS: Bowel gas: The bowel loops are nondilated, however there is ill-defined wall thickening of the bowel loops within the left upper quadrant. Bones: There are degenerative changes of the spine. Other: Contrast opacifies the urinary bladder. The visualized lung bases are unremarkable. Normal-sized heart. RAD/Abdomen Single View (Portable) IMPRESSION: Ill-defined wall thickening of the left upper quadrant bowel loops, which is in determinate in etiology. Correlation with patient's symptoms is recommended and consider CT abdomen pelvis for further ev aluation. Reading Location: [id number]
[2024-11-05 11:36] LABS: Bedside Glucose 140 mg/dL (74-106)
[2024-11-05] MEDS: 0.9% Normal Saline (1000mL) 1,000 ML 75 ML IV (15:26)
[2024-11-05 15:48] LABS: Bedside Glucose 117 mg/dL (74-106)
[2024-11-05 23:38] LABS: Bedside Glucose 128 mg/dL (74-106)
[2024-11-06 02:02] VITALS: PULSE 43
[2024-11-06 03:59] VITALS: PULSE 47
[2024-11-06] MEDS: 0.9% Normal Saline (1000mL) 1,000 ML 75 ML IV (04:38)
[2024-11-06 04:41] VITALS: BP 148/66; PULSE 50; RESP 16; TEMP 36.6; O2SAT 96
--- NOTE | 2024-11-06 05:10 | RAD_ITS ---
PROCEDURE: ABDOMEN SINGLE VIEW (PORTABLE) 11/06/2024 REASON FOR EXAM: SBO TECHNIQUE: Single view abdomen. 3 total images COMPARISON: 11/05/2024 FINDINGS: Bowel-gas pattern overall appears indeterminate with a paucity of small-bowel gas. No gaseous distention of bowel. Mild gaseous prominence of the sigmoid colon seen. RAD/Abdomen Single View (Portable) IMPRESSION: Indeterminate bowel-gas pattern with a paucity of small bowel gas. Reading Location: [id number]
[2024-11-06 06:19] LABS: Absolute Lymphocyte Count 1.44 X10^3/uL (0.83-4.51); Absolute Neutrophil Count 3.1 X10^3/uL (2.0-7.7); Basophil# 0.02 X10^3/uL; Basophil% 0.4 % (0-1); Eosinophil# 0.21 X10^3/uL; Hematocrit 33.4 % (40-54); Hemoglobin 11.5 g/dL (13.0-16.5); Lymphocyte # 1.44 X10^3/ul (0.83-4.51); Lymphocyte % 27.4 % (19-41); Mean Corp Hgb Conc 34.4 g/dL (32-36); Mean Corpuscular Hgb 29.7 pg (27.0-32.0); Mean Corpuscular Volume 86.3 fL (80-94); Mean Platelet Vol. 9.7 fl (6.2-12.0); Monocyte# 0.44 X10^3/uL; Monocyte% 8.4 % (0-10); NRBC Flagged by Analyzer 0 % (0-5); Neutrophil # 3.14 X10^3/uL (2.7-7.7); Neutrophil % 59.6 % (47-70); Platelet Count 127 K/mm3 (150-450); RBC Distribution Width CV 13.2 % (11.6-14.6); RBC Distribution Width SD 41.1 fl (35.1-43.9); Red Blood Count 3.87 M/mm3 (4.6-6.2); White Blood Count 5.3 K/mm3 (4.4-11.0)
[2024-11-06 06:50] LABS: Anion Gap 10 (5-15); BUN 20 mg/dL (4-19); BUN/Creat Ratio 27.5 RATIO (10-20); Calcium,Total 8.6 mg/dL (7.6-11.0); Carbon Dioxide 23.8 mmol/L (21.0-32.0); Chloride 106 mmol/L (98-108); Creatinine, Serum 0.74 mg/dL (0.70-1.20); EST Glomerular Filtration Rate 100 (>60); Estimated Creatinine Clearance 117.65 ml/min (50-250); Glucose 135 mg/dL (70-99); Potassium 3.8 mmol/L (3.3-5.1); Sodium Level 140 mmol/L (133-145)
[2024-11-06 07:00] VITALS: PULSE 49
[2024-11-06 08:42] VITALS: BP 138/89; PULSE 54; RESP 18; TEMP 36.5; O2SAT 96
--- NOTE | 2024-11-06 08:58 | PCM.PN.SRG ---
Subjective Subjective Patient reports having a bowel movement and passing gas and he is having no abdominal pain or nausea. Objective Data Objective Data Vital Signs: Vital Signs Temp Pulse Resp BP Pulse Ox O2 Del Method O2 Flow Rate 97.7 F L 54 L 18 138/89 H 96 Room Air 2 11/06/24 08:42 11/06/24 08:42 11/06/24 08:42 11/06/24 08:42 11/06/24 08:42 11/06/24 08:42 11/04/24 23:35 Oxygen Flow Rate (L/min) 2 Oxygen Delivery Method Room Air Weight: 270 lb 15.17 oz Body Mass Index (BMI) 40.0 Intake & Output: Intake and Output for Last 24 Hours 11/04/24 11/05/24 11/06/24 23:59 23:59 23:59 Intake Total 1000 / 1050 985.00 / 1185.00 1240 / 1240 Balance 1000 / 1050 985.00 / 1185.00 1240 / 1240 Lab / Micro Data 11/06/24 06:03 11/06/24 06:03 Labs: Laboratory Results - last 24 hr 11/05/24 11:00: POC Glucose 140 H 11/05/24 15:23: POC Glucose 117 H 11/05/24 23:17: POC Glucose 128 H 11/06/24 06:03: WBC 5.3, RBC 3.87 L, Hgb 11.5 L, Hct 33.4 L, MCV 86.3, MCH 29.7, MCHC 34.4, RDW Std Deviation 41.1, RDW Coeff of Iván 13.2, Plt Count 127 L, MPV 9.7, Immature Gran % (Auto) 0.200, Neut % (Auto) 59.6, Lymph % (Auto) 27.4, [place] % (Auto) 8.4, Eos % (Auto) 4.0, Baso % (Auto) 0.4, Absolute Neuts (auto) 3.1, Absolute Lymphs (auto) 1.44, Nucleated RBC % 0, Sodium 140, Potassium 3.8, Chloride 106, Carbon Dioxide 23.8, Anion Gap 10, BUN 20 H, Creatinine 0.74, Estim Creat Clear Calc 117.65, Est GFR (MDRD) Non-Af 100, BUN/Creatinine Ratio 27.5 H, Glucose 135 H, Calcium 8.6 Radiography Diagnostic Testing: Radiology Impression KUB X-Ray 11/05/24 09:25 IMPRESSION: Ill-defined wall thickening of the left upper quadrant bowel loops, which is indeterminate in etiology. Correlation with patient's symptoms is recommended and consider CT abdomen pelvis for further evaluation. Reading Location: [facility] KUB X-Ray 11/06/24 05:10 IMPRESSION: Indeterminate bowel-gas pattern with a paucity of small bowel gas. Reading Location: [facility] Physical Exam Const oriented x3 and no apparent distress Resp normal respiratory effort GI soft to palpation and non-tender Assessment & Plan Assessment/Plan (1) History of Crohn's disease: (2) SBO (small bowel obstruction): PLAN: Plan The patient had what appeared to be a small bowel obstruction on CT yesterday. He was admitted and kept NPO. He has been passing gas and stool. He is not having any abdominal pain. I will advance him to clear liquids and advance as tolerated. If he tolerates the liquid diet and advance to regular he may be discharged home. Freddy Valdovinos MD Pager: [facility] [address] [place] [address], [address] [place] [address] Office:
--- NOTE | 2024-11-06 11:34 | PN.HOSP_ITS ---
Reason for Visit Reason for Visit: Diagnoses Unspecified intestinal obstruction, unspecified as to partial versus complete obstruction (11/04/24) Personal history of other diseases of the digestive system (11/04/24) Objective Data Objective Data Vital Signs: Vital Signs Temp Pulse Resp BP Pulse Ox O2 Del Method O2 Flow Rate 97.7 F L 54 L 18 138/89 H 96 Room Air 2 11/06/24 08:42 11/06/24 08:42 11/06/24 08:42 11/06/24 08:42 11/06/24 08:42 11/06/24 08:42 11/04/24 23:35 Oxygen Flow Rate (L/min) 2 Oxygen Delivery Method Room Air Weight: 270 lb 15.17 oz Body Mass Index (BMI) 40.0 Intake & Output: Intake and Output for Last 24 Hours 11/04/24 11/05/24 11/06/24 23:59 23:59 23:59 Intake Total 1000 / 1050 985.00 / 1185.00 1696.25 / 1696.25 Balance 1000 / 1050 985.00 / 1185.00 1696.25 / 1696.25 Lab / Micro Data 11/06/24 06:03 11/06/24 06:03 Labs: Laboratory Results - last 24 hr 11/05/24 11:00: POC Glucose 140 H 11/05/24 15:23: POC Glucose 117 H 11/05/24 23:17: POC Glucose 128 H 11/06/24 06:03: WBC 5.3, RBC 3.87 L, Hgb 11.5 L, Hct 33.4 L, MCV 86.3, MCH 29.7, MCHC 34.4, RDW Std Deviation 41.1, RDW Coeff of Iván 13.2, Plt Count 127 L, MPV 9.7, Immature Gran % (Auto) 0.200, Neut % (Auto) 59.6, Lymph % (Auto) 27.4, [place] % (Auto) 8.4, Eos % (Auto) 4.0, Baso % (Auto) 0.4, Absolute Neuts (auto) 3.1, Absolute Lymphs (auto) 1.44, Nucleated RBC % 0, Sodium 140, Potassium 3.8, Chloride 106, Carbon Dioxide 23.8, Anion Gap 10, BUN 20 H, Creatinine 0.74, Estim Creat Clear Calc 117.65, Est GFR (MDRD) Non-Af 100, BUN/Creatinine Ratio 27.5 H, Glucose 135 H, Calcium 8.6 Radiography Diagnostic Testing: Radiology Impression KUB X-Ray 11/06/24 05:10 IMPRESSION: Indeterminate bowel-gas pattern with a paucity of small bowel gas. Reading Location: [facility] Physical Exam Narrative Seen and examined. Patient complain of abdominal discomfort progressed pain and distention for last 2 days got worse yesterday. [facility] No history of abdominal surgery. Last BM was yesterday. Patient is still passing flatus. No fever. Physical exam General: Alert, Oriented x3, Cooperative. Morbid obesity BMI 40.0 kg/m? HEENT: Atraumatic, PERRLA, EOMI, Normocephalic Oral: No Gingival or Mucosal Lesions/ Ulcerations Neck: Supple, No JVD, Negative Carotid Bruits Chest wall/Lungs: Air entry diminished in bilateral lung bases. No crepitation/rhonchi Cardiovascular: Regular rate, Regular Rhythm, Normal S1, Normal S2, No M/G/R Abdomen: Bowel Sounds hyper. Mild distention. No guarding/rigidity. No acute tenderness or rebound tenderness : No dysuria. No renal angle tenderness. No suprapubic tenderness. Extremities: No edema, Capillary Refill Less than 3 Seconds Skin: No rashes, No breakdown Musculoskeletal: No Tenderness to Palpation of Joints or Extremities Neurological: Cranial nerves II-XII grossly intact, DTR 2+/4. No acute focal neurological deficit. Psych/Mental Status: Normal Affect, Appropriate. Assessment & Plan Assessment/Plan (1) SBO (small bowel obstruction): PLAN: Plan Patient is a 68-year-old male who presented to [facility] ED on 11/04/24 with abdominal pain and distention on the day of admission. Denies nausea and vomiting 1. Small bowel obstruction ? Admit under inpatient status to [facility]. General surgery consulted. CT abdomen pelvis on admit showed multiple dilated loops of proximal jejunum with suspected transition point in mid abdomen concerning for SBO. No prior abdominal surgeries. No prior history of surgery. General surgery is consulted. Monitor conservatively with abdominal exam and KUB. Continue IV fluid, n.p.o. no need for NGT 2. Crohn's disease ? Follows with Dr. Chauhan. Has been on Stelara for the past few years with very good control of Crohn's disease. No Crohn's flares in several years. No inpatient GI needs at this time. 3. History of CAD with stenting, hypertension ? Stable. Continue home aspirin, amlodipine, carvedilol and doxazosin. Will hold home lisinopril, hydrochlorothiazide and spironolactone for now but can restart as needed. 4. Class II obesity with VEL ? BMI 39 on admit. Complicates hospital course, care and prognosis. Encouraged weight loss. Continue CPAP at night. DVT prophylaxis: Lovenox CODE STATUS: Full code, verified
--- NOTE | 2024-11-06 11:34 | CASEMGMT ---
JESSE STYLES Assessment Face to Face with patient for initial transition planning/care coordination assessment. JESSE STYLES introduced self and role at [facility], pt voices understanding. Pt is A&Ox4 and is resting comfortably in bed and is calm. Care providers, pharmacy, and demographics verified. Admitting dx: SBO LACE Strata: 2 PCP: Alvaro St Specialists: AARON, Friend (GI) Preferred Pharmacy: [facility] Insurance: [employer] [facility] Prescription Benefit: Yes LNOK: Bri (W) Living Arrangements: Pt lives with his in a single story home with 2 steps to enter ADLs/IADLs: Ind Transportation: Self, DME: CPAP @ [facility] with no additional oxygen. Denies further DME uses or needs HHC/SNF: Denies hx or needs Pt?s goal: Home Plan: Home, no additional needs. 6-Click score is 24. Plan is to advanced pt diet as tolerated. Pt states that he feels safe returning home with his once he is medically ready and denies any further DC needs. Report given to MAXIMO MOLINA CM. Jessica Abebe RN, CM
--- NOTE | 2024-11-06 11:35 | DCINST_ITS ---
Discharge Instructions DC O2, CPAP, BIPAP needs Home O2 Discharge instructions: No Follow Up Care Test Results: Test results from this visit will be discussed in further detail at your follow- up appointment, if applicable. Discharge Plan Admission Admit Date/Time: 11/04/24 22:13 Primary Reason for Your Visit: Partial small bowel obstruction Attending Provider: Flip Finley Primary Care Provider: Alvaro St Consulting Providers: Freddy Valdovinos; Tanner Monahan Discharge Orders/Prescriptions Prescriptions: Continued Stelara 130 mg/26 mL solution 130 mg IV .COMPLEX Rx Instructions: 130 mg intravenously once every 8 weeks hydrocortisone 2.5 % ointment 1 applic topical TID PRN (Reason: rash) Qty: 454 3RF aspirin 81 MG tablet,chewable 81 mg PO DAILY cukyybio-uct-WO-lycopen-lutein 1 EACH tablet 1 tab PO DAILY hydrochlorothiazide 25 mg tablet 25 mg PO DAILY Qty: 90 3RF spironolactone 25 mg tablet 25 mg PO DAILY Qty: 90 3RF carvedilol 25 mg tablet 25 mg PO BID Qty: 180 3RF amlodipine 5 mg tablet 5 mg PO BID Qty: 60 3RF doxazosin 4 mg tablet 4 mg PO DAILY Qty: 90 3RF lisinopril 20 mg tablet 20 mg PO BID Qty: 180 3RF Referrals / Follow Up: Freddy Valdovinos MD [Med Staff - Active Staff] - Within [address] MD [Primary Care Provider] - Artemio Caba MD [Emergency Provider] - Tano Chauhan DO [Med Staff - Active Staff] - Within 1 Month Disposition Disposition (needs filled in before D/C Order can be placed): Home, Self Care
--- NOTE | 2024-11-06 11:38 | PCM.DC.SUM ---
Providers Date of Admission: 11/04/24 Date of Discharge: 11/06/24 Primary Care Physician: Alvaro St MD Consultations 11/04/24 22:31 Consult: General Surgery Routine Consulting Provider: Freddy Valdovinos Reason for Consult: SBO EMERGENT Consult: No MD Notified: Yes Date Notified: 11/04/24 Time Notified: 22:17 Method of Notification: ED Physician Initiated Reason For Visit: SM BOWEL OBSTRUCTION,CHROHNS HX Diagnosis Discharge Diagnosis (1) SBO (small bowel obstruction): Status: Acute Code(s): K56.609 - Unspecified intestinal obstruction, unspecified as to partial versus complete obstruction Plan Patient is a 68-year-old male who presented to [facility] ED on 11/04/24 with abdominal pain and distention on the day of admission. Denies nausea and vomiting 1. Small bowel obstruction ? Admit under inpatient status to [facility]. General surgery consulted. CT abdomen pelvis on admit showed multiple dilated loops of proximal jejunum with suspected transition point in mid abdomen concerning for SBO. No prior abdominal surgeries. No prior history of surgery. General surgery is consulted. Monitor conservatively with abdominal exam and KUB. Continue IV fluid, n.p.o. no need for NGT 11/06: Patient tolerated liquid diet and diet advanced to solid. Patient seen by surgeon and I discussed with Dr. Valdovinos. If he tolerates lunch, patient is being discharged. Advised to follow-up with surgery in 2 weeks and in the GI clinic. 2. Crohn's disease ? Follows with Dr. Chauhan. Has been on Stelara for the past few years with very good control of Crohn's disease. No Crohn's flares in several years. No inpatient GI needs at this time. 3. History of CAD with stenting, hypertension ? Stable. Continue home aspirin, amlodipine, carvedilol and doxazosin. Will hold home lisinopril, hydrochlorothiazide and spironolactone for now but can restart as needed. 4. Class II obesity with VEL ? BMI 39 on admit. Complicates hospital course, care and prognosis. Encouraged weight loss. Continue CPAP at night. DVT prophylaxis: Lovenox CODE STATUS: Full code, verified Medications at Discharge Home Medications aspirin 81 mg chewable tablet 81 mg PO DAILY [facility] 04/10/20 pokkqmlb-dza-vwpam acid 0.4 mg-lycopene 300 mcg-lutein 250 mcg tablet 1 tab PO DAILY vitamin 04/10/20 ustekinumab 130 mg/26 mL intravenous solution (Stelara) 130 mg IV .COMPLEX 04/27/23 hydrochlorothiazide 25 mg tablet 25 mg PO DAILY diuretic #90 tabs 01/24/24 carvedilol 25 mg tablet 25 mg PO BID BP #180 tabs 07/14/24 spironolactone 25 mg tablet 25 mg PO DAILY #90 tabs 07/14/24 amlodipine 5 mg tablet 5 mg PO BID #60 tabs 08/14/24 hydrocortisone 2.5 % topical ointment 1 applic topical TID PRN rash #454 grams 08/30/24 doxazosin 4 mg tablet 4 mg PO DAILY #90 tabs 09/21/24 lisinopril 20 mg tablet 20 mg PO BID BP #180 tabs 09/21/24 Physical Exam Narrative Seen and examined. No abdominal pain. Patient had several 4-5 loose bowel movement mainly liquid mixed with bile and mucus. No blood. Hemoglobin 11.5 on baseline Physical exam General: Alert, Oriented x3, Cooperative. Morbid obesity BMI 40.0 kg/m? HEENT: Atraumatic, PERRLA, EOMI, Normocephalic Oral: No Gingival or Mucosal Lesions/ Ulcerations Neck: Supple, No JVD, Negative Carotid Bruits Chest wall/Lungs: Air entry diminished in bilateral lung bases. No crepitation/rhonchi Cardiovascular: Regular rate, Regular Rhythm, Normal S1, Normal S2, No M/G/R Abdomen: Bowel Sounds normal. No guarding/rigidity. No acute tenderness or rebound tenderness : No dysuria. No renal angle tenderness. No suprapubic tenderness. Extremities: No edema, Capillary Refill Less than 3 Seconds Skin: No rashes, No breakdown Musculoskeletal: No Tenderness to Palpation of Joints or Extremities Neurological: Cranial nerves II-XII grossly intact, DTR 2+/4. No acute focal neurological deficit. Psych/Mental Status: Normal Affect, Appropriate. Weight / BMI Weight Weight: 270 lb 15.17 oz Body Mass Index (BMI) 40.0 ABG / Lab / Microbiology Data 11/06/24 06:03 11/06/24 06:03 Laboratory: Laboratory Results - last 24 hr 11/05/24 15:23: POC Glucose 117 H 11/05/24 23:17: POC Glucose 128 H 11/06/24 06:03: WBC 5.3, RBC 3.87 L, Hgb 11.5 L, Hct 33.4 L, MCV 86.3, MCH 29.7, MCHC 34.4, RDW Std Deviation 41.1, RDW Coeff of Iván 13.2, Plt Count 127 L, MPV 9.7, Immature Gran % (Auto) 0.200, Neut % (Auto) 59.6, Lymph % (Auto) 27.4, Mcleod % (Auto) 8.4, Eos % (Auto) 4.0, Baso % (Auto) 0.4, Absolute Neuts (auto) 3.1, Absolute Lymphs (auto) 1.44, Nucleated RBC % 0, Sodium 140, Potassium 3.8, Chloride 106, Carbon Dioxide 23.8, Anion Gap 10, BUN 20 H, Creatinine 0.74, Estim Creat Clear Calc 117.65, Est GFR (MDRD) Non-Af 100, BUN/Creatinine Ratio 27.5 H, Glucose 135 H, Calcium 8.6 Radiography Diagnostic Testing: Radiology Impression KUB X-Ray 11/06/24 05:10 IMPRESSION: Indeterminate bowel-gas pattern with a paucity of small bowel gas. Reading Location: [id number] D/C Instructions DC O2, CPAP, BIPAP Needs Home O2 Discharge instructions: No Meaningful Use Info Meaningful Use Meaningful Use Diagnoses (Choose all that apply): None applicable Ischemic Stroke Statin Dosing Therapy Reference: STATIN DOSE THERAPY REFERENCE: * Patients > 75 years receive moderate or high dose statin therapy. * Patients 75 years or YOUNGER should receive HIGH intensity statin dose unless contraindicated. You will be required to document reason for non-treatment if statin daily dose does not meet guidelines. HIGH DOSE STATIN THERAPY DAILY Atorvastatin > than or = to 40 mg Rosuvastatin > than or = to 20 mg Amlodipine + Atorvastatin > than or = to 2.5/40 mg Ezetimibe + Simvastatin 10/80 mg Simvastatin 80mg Discharge Plan Admission Admit Date/Time: 11/04/24 22:13 Primary Reason for Your Visit: Partial small bowel obstruction Attending Provider: Flip Finley Primary Care Provider: Alvaro St Consulting Providers: Freddy Valdovinos; Tanner Monahan Discharge Orders/Prescriptions Prescriptions: Continued Stelara 130 mg/26 mL solution 130 mg IV .COMPLEX Rx Instructions: 130 mg intravenously once every 8 weeks hydrocortisone 2.5 % ointment 1 applic topical TID PRN (Reason: rash) Qty: 454 3RF aspirin 81 MG tablet,chewable 81 mg PO DAILY tmjicuuh-rvj-XK-lycopen-lutein 1 EACH tablet 1 tab PO DAILY hydrochlorothiazide 25 mg tablet 25 mg PO DAILY Qty: 90 3RF spironolactone 25 mg tablet 25 mg PO DAILY Qty: 90 3RF carvedilol 25 mg tablet 25 mg PO BID Qty: 180 3RF amlodipine 5 mg tablet 5 mg PO BID Qty: 60 3RF doxazosin 4 mg tablet 4 mg PO DAILY Qty: 90 3RF lisinopril 20 mg tablet 20 mg PO BID Qty: 180 3RF Referrals / Follow Up: Freddy Valdovinos MD [Med Staff - Active Staff] - Within [address] MD [Primary Care Provider] - Artemio Caba MD [Emergency Provider] - Tano Chauhan DO [Med Staff - Active Staff] - Within 1 Month Disposition Disposition (needs filled in before D/C Order can be placed): Home, Self Care Charges/Coding Visit Charges Inpatient E&M: 73349 Subs Hosp L2
[2024-11-06 11:41] LABS: Bedside Glucose 128 mg/dL (74-106)
--- NOTE | 2024-11-06 13:10 | PHA.DC.MR.R ---
Pharmacy [place] Med Reconciliation Pharmacy Service has performed discharge medication reconciliation for this patient. The patient's discharge medication list was reviewed for discrepancies and discrepancies were resolved. Medications at Discharge Home Medications aspirin 81 mg chewable tablet 81 mg PO DAILY [facility] 04/10/20 nxyvtjsm-tlo-wjedl acid 0.4 mg-lycopene 300 mcg-lutein 250 mcg tablet 1 tab PO DAILY vitamin 04/10/20 ustekinumab 130 mg/26 mL intravenous solution (Stelara) 130 mg IV .COMPLEX 04/27/23 hydrochlorothiazide 25 mg tablet 25 mg PO DAILY diuretic #90 tabs 01/24/24 carvedilol 25 mg tablet 25 mg PO BID BP #180 tabs 07/14/24 spironolactone 25 mg tablet 25 mg PO DAILY #90 tabs 07/14/24 amlodipine 5 mg tablet 5 mg PO BID #60 tabs 08/14/24 hydrocortisone 2.5 % topical ointment 1 applic topical TID PRN rash #454 grams 08/30/24 doxazosin 4 mg tablet 4 mg PO DAILY #90 tabs 09/21/24 lisinopril 20 mg tablet 20 mg PO BID BP #180 tabs 09/21/24
[2024-11-06 13:53] VITALS: BP 149/67; PULSE 57; RESP 18; TEMP 36.7; O2SAT 97
== END 2024-11-06 13:54 | disposition home or self-care (01) | DRG 386 ==
LOC: ED 20:40 → MS3 22:09
PROVIDERS: Physician Assistant; Admitting Provider Hospitalist; Emergency Provider Emergency Medicine; PCP Family Medicine; Referring Provider Emergency Medicine; Visit Provider Internal Medicine
DX: K50.912 Crohn's disease, unspecified, with intestinal obstruction (principal); Z68.41 Body mass index [BMI] 40.0-44.9, adult; I27.21 Secondary pulmonary arterial hypertension; I10 Essential (primary) hypertension; G47.33 Obstructive sleep apnea (adult) (pediatric); I25.10 Atherosclerotic heart disease of native coronary artery without angina pectoris; E78.5 Hyperlipidemia, unspecified; E66.812 Obesity, class 2; Z79.82 Long term (current) use of aspirin; Z87.891 Personal history of nicotine dependence; Z95.5 Presence of coronary angioplasty implant and graft
CPT/HCPCS: 36415; 74018; 74177; 80048; 80053; 81001; 82962; 83690; 85025; 85027; 94660; 94668; 99284; Q9967; A4216; J2405

== ENCOUNTER → 2025-04-03 | Outpatient (CLI) | payer MEDICARE, SELFPAY ==
[2025-04-03 10:42] LABS: Hematocrit 37.3 % (40-54); Hemoglobin 12.6 g/dL (13.0-16.5); Immature Granulocytes Count 0.020 X10^3/uL (0.0-0.0); Mean Corp Hgb Conc 33.8 g/dL (32-36); Mean Corpuscular Volume 85.7 fL (80-94); Mean Platelet Vol. 10.1 fl (6.2-12.0); NRBC Flagged by Analyzer 0 % (0-5); Platelet Count 159 K/mm3 (150-450); RBC Distribution Width CV 12.9 % (11.6-14.6); RBC Distribution Width SD 39.9 fl (35.1-43.9); Red Blood Count 4.35 M/mm3 (4.6-6.2); White Blood Count 6.2 K/mm3 (4.4-11.0)
[2025-04-03 11:21] LABS: Anion Gap 13 (5-15); BUN 16 mg/dL (4-19); BUN/Creat Ratio 20.3 RATIO (10-20); Calcium,Total 9.6 mg/dL (7.6-11.0); Carbon Dioxide 23.0 mmol/L (21.0-32.0); Chloride 101 mmol/L (98-108); Glucose 166 mg/dL (70-99); Potassium 4.3 mmol/L (3.3-5.1)
[2025-04-03 12:58] LABS: PSA,Total - Annual Screen 0.73 ng/mL (0.02-4.00)
== END | disposition home or self-care (01) ==
LOC: LAB 09:43
PROVIDERS: PCP Family Medicine; Referring Provider Nurse Practitioner Gerontology; Visit Provider Nurse Practitioner Gerontology
DX: I10 Essential (primary) hypertension (principal); Z12.5 Encounter for screening for malignant neoplasm of prostate
CPT/HCPCS: 36415; 80048; 84153; 85025; G0103

== ENCOUNTER → 2025-04-25 | Outpatient (CLI) | payer MEDICARE, SELFPAY | END | disposition home or self-care (01) | LOC: CVS 06:54 | PROVIDERS: PCP Family Medicine; Referring Provider Nurse Practitioner Gerontology; Visit Provider Nurse Practitioner Gerontology | DX: R07.89 Other chest pain (principal) | CPT/HCPCS: 78452; 93017; A9500; A4216 ==